=== PATIENT | male | born 1955 | race Caucasian/White ===

== ENCOUNTER → 2017-07-27 09:33 | Outpatient (CLI) | payer OTHER, SELFPAY ==
[2017-07-27 09:55] LABS: Add Manual Diff / Slide Review NO; Basophils Percent Auto 0.6 % (0-2); Eosinophils Percent Auto 4.5 % (2-4); Hematocrit 48.6 % (41-53); Hemoglobin 16.5 g/dL (13.5-17.5); Mean Corpuscular Hemoglobin 30.3 PG (26-34); Mean Corpuscular Volume 89.1 fL (80-100); Monocytes Percent Auto 8.6 % (3-14); Neutrophils Absolute Auto 2900 /uL (3000-5900); Neutrophils Percent Auto 66.3 % (50-75); Platelet Count 194 X10^3/uL (150-400); Red Blood Cell Count 5.45 X10^6/uL (4.5-5.9); White Blood Cell Count 4.4 X10^3/uL (4.5-11.0)
[2017-07-27 10:18] LABS: Alanine Aminotransferase 46 IU/L (21-72); Albumin 4.1 g/dL (3.5-5.0); Albumin Globulin Ratio 1.3 (1.0-2.8); Alkaline Phosphatase 75 U/L (38-126); Aspartate Aminotransferase 45 IU/L (17-59); BUN Creatinine Ratio 13.3 (6-22); Bilirubin Total 2.1 mg/dL (0.2-1.3); Blood Urea Nitrogen 12 mg/dL (9-20); Calcium 9.2 mg/dL (8.4-10.2); Carbon Dioxide 31 mmol/L (22-32); Chloride 100 mmol/L (98-107); Cholesterol 190 mg/dL (140-199); Estimated Glomerular Filt Rate > 60.0 mL/min (>60); Globulin 3.2 g/dL (1.7-4.1); Glucose 93 mg/dL (80-110); HDL Cholesterol 51 mg/dL (40-60); HEMOLYSIS < 15 (0-50); LDL Cholesterol Calculated 94 mg/dL (<100); Potassium 4.1 mmol/L (3.4-5.1); Sodium 140 mmol/L (137-145); Total Protein 7.3 g/dL (6.3-8.2); Triglycerides 227 mg/dL (35-150)
[2017-07-27 11:06] LABS: TSH w/ Reflex to FT4 2.98 uIU/mL (0.47-4.68)
[2017-07-27 13:38] LABS: Prostate Specific Antigen Scrn 0.893 ng/mL (0.1-4.0)
== END ==
PROVIDERS: Family Provider Family Medicine; PCP Family Medicine; Visit Provider Family Medicine
DX: I10 Essential (primary) hypertension (principal); E03.9 Hypothyroidism, unspecified; E78.5 Hyperlipidemia, unspecified; Z12.5 Encounter for screening for malignant neoplasm of prostate
CPT/HCPCS: 36415; 80053; 80061; 84153; 84443; 85025; G0103

== ENCOUNTER → 2019-01-02 09:50 | Outpatient (CLI) | payer MEDICARE, OTHER, SELFPAY ==
[2019-01-02 11:00] LABS: Add Manual Diff / Slide Review NO; Basophils Absolute Auto 0 /uL (0-100); Basophils Percent Auto 0.6 % (0-2); Eosinophils Absolute Auto 200 /uL (0-450); Hematocrit 47.7 % (41-53); Hemoglobin 16.2 g/dL (13.5-17.5); Lymphocytes Absolute Auto 1300 /uL (1100-4500); Lymphocytes Percent Auto 24.1 % (25-40); Mean Corpuscular Volume 88.1 fL (80-100); Monocytes Absolute Auto 600 /uL (0-900); Monocytes Percent Auto 10.1 % (3-14); Neutrophils Absolute Auto 3400 /uL (1500-7000); Neutrophils Percent Auto 62.2 % (50-75); Platelet Count 225 X10^3/uL (150-400); Red Blood Cell Count 5.42 X10^6/uL (4.5-5.9); White Blood Cell Count 5.4 X10^3/uL (4.5-11.0)
[2019-01-02 11:18] LABS: Alanine Aminotransferase 39 IU/L (<50); Albumin 4.4 g/dL (3.5-5.0); Albumin Globulin Ratio 1.5 (1.0-2.8); Alkaline Phosphatase 103 U/L (38-126); Aspartate Aminotransferase 40 IU/L (17-59); BUN Creatinine Ratio 18.8 (6-22); Bilirubin Total 1.4 mg/dL (0.2-1.3); Blood Urea Nitrogen 15 mg/dL (9-20); Calcium 9.8 mg/dL (8.4-10.2); Carbon Dioxide 30 mmol/L (22-32); Chloride 100 mmol/L (98-107); Cholesterol 211 mg/dL (140-199); Estimated Glomerular Filt Rate > 60.0 mL/min (>60); Globulin 2.9 g/dL (1.7-4.1); Glucose 96 mg/dL (80-110); HDL Cholesterol 60 mg/dL (40-60); HEMOLYSIS < 15 (0-50); LDL Cholesterol Calculated 106 mg/dL (<100); Potassium 4.6 mmol/L (3.4-5.1); Sodium 139 mmol/L (137-145); Total Protein 7.3 g/dL (6.3-8.2); Triglycerides 223 mg/dL (35-150)
[2019-01-02 11:43] LABS: Prostate Specific Antigen Scrn 1.89 ng/mL (0.1-4.0)
[2019-01-02 11:44] LABS: Thyroid Stimulating Hormone 1.71 uIU/mL (0.47-4.68)
== END ==
PROVIDERS: PCP Family Medicine; Visit Provider Family Medicine
DX: Z12.5 Encounter for screening for malignant neoplasm of prostate (principal); Z13.0 Encounter for screening for diseases of the blood and blood-forming organs and certain disorders involving the immune mechanism; Z13.1 Encounter for screening for diabetes mellitus; Z13.220 Encounter for screening for lipoid disorders; Z13.6 Encounter for screening for cardiovascular disorders; E03.9 Hypothyroidism, unspecified
CPT/HCPCS: 36415; 80053; 80061; 84443; 85025; G0103

== ENCOUNTER → 2020-01-08 09:34 | Outpatient (CLI) | payer MEDICARE, OTHER, SELFPAY ==
[2020-01-08 10:10] LABS: Add Manual Diff / Slide Review NO; Basophils Absolute Auto 0 /uL (0-100); Basophils Percent Auto 0.7 % (0-2); Eosinophils Absolute Auto 100 /uL (0-450); Eosinophils Percent Auto 2.7 % (2-4); Hematocrit 47.1 % (41-53); Hemoglobin 15.4 g/dL (13.5-17.5); Lymphocytes Absolute Auto 1300 /uL (1100-4500); Lymphocytes Percent Auto 27.3 % (25-40); Mean Corpuscular HGB Conc 32.8 % (30-36); Mean Corpuscular Hemoglobin 29.2 PG (26-34); Mean Corpuscular Volume 88.9 fL (80-100); Monocytes Absolute Auto 400 /uL (0-900); Monocytes Percent Auto 8.8 % (3-14); Neutrophils Absolute Auto 2900 /uL (1500-7000); Neutrophils Percent Auto 60.5 % (50-75); Platelet Count 197 X10^3/uL (150-400); Red Cell Distribution Width 13.2 % (11.6-14.8); White Blood Cell Count 4.8 X10^3/uL (4.5-11.0)
[2020-01-08 11:08] LABS: Alanine Aminotransferase 29 IU/L (<50); Albumin 4.5 g/dL (3.5-5.0); Albumin Globulin Ratio 1.5 (1.0-2.8); Alkaline Phosphatase 87 U/L (38-126); Aspartate Aminotransferase 32 IU/L (17-59); BUN Creatinine Ratio 17.4 (6-22); Bilirubin Total 1.5 mg/dL (0.2-1.3); Blood Urea Nitrogen 15 mg/dL (9-20); Calcium 9.6 mg/dL (8.4-10.2); Carbon Dioxide 29 mmol/L (22-32); Chloride 102 mmol/L (98-107); Cholesterol 189 mg/dL (140-199); Estimated Glomerular Filt Rate > 60.0 mL/min (>60); Glucose 91 mg/dL (80-110); HDL Cholesterol 52 mg/dL (40-60); HEMOLYSIS < 15 (0-50); LDL Cholesterol Calculated 87 mg/dL (<100); Potassium 4.4 mmol/L (3.4-5.1); Sodium 137 mmol/L (137-145); Total Protein 7.5 g/dL (6.3-8.2); Triglycerides 252 mg/dL (35-150)
[2020-01-08 13:25] LABS: Thyroid Stimulating Hormone 1.68 uIU/mL (0.47-4.68)
== END ==
PROVIDERS: PCP Family Medicine; Referring Provider Family Medicine; Visit Provider Family Medicine
DX: E03.9 Hypothyroidism, unspecified (principal); I10 Essential (primary) hypertension; Z12.5 Encounter for screening for malignant neoplasm of prostate
CPT/HCPCS: 36415; 80053; 80061; 84443; 85025; G0103

== ENCOUNTER → 2020-01-13 10:38 | Outpatient (CLI) | payer MEDICARE, OTHER, SELFPAY ==
[2020-02-13 13:46] LABS: SARS CoV19 IgG NEGATIVE
== END ==
PROVIDERS: PCP Family Medicine; Referring Provider Family Medicine; Visit Provider Family Medicine
DX: Z87.898 Personal history of other specified conditions (principal)
CPT/HCPCS: 86769

== ENCOUNTER 2020-05-29 06:19 | Inpatient (IN) | payer MEDICARE, OTHER, SELFPAY ==
[2020-05-29] VITALS (21 sets, daily range): BP systolic 97–213; BP diastolic 61–123; PULSE 68–139; RESP 11–20; TEMP 35.7–39.4; O2SAT 91–98; BMI 27.2
--- NOTE | 2020-05-29 | PATH_ITS ---
[facility] Accession Number: [id number] . 01 Material submitted: . appendix - APPENDIX . 02 Diagnosis: Appendix, Appendectomy: Acute suppurative appendicitis with perforation and serositis. Negative for dysplasia and malignancy. MRV 06/04/2020 1551 Local . 02 Electronically signed: . Halie Mednoza MD, Pathologist NPI- [id number] . 01 Gross description: . The specimen is received in formalin, labeled appendix and consists of a 5.5 cm in length by 1.3 cm in diameter vermiform appendix with attached mi-yellow lobulated mesoappendix measuring 3.0 x 1.5 x 1.5 cm. The serosa is mi-pink, focally disrupted with fibrinous adhesions and mi-white purulent exudate. Sectioning reveals a mi-pink mucosa and a lumen measuring 0.8 cm in diameter. [employer] sections are submitted to include the en face margin (blue), central cross-sections and serially sectioned tip in cassettes A1-A3. ([id number]) /MRV 06/02/2020 1116 Local . 02 Pathologist provided ICD-10: K35.20 . 02 CPT . 691288 Performed at: 01 [facility] [address] [facility], [place], [place] [id number] MD Richi Mahoney MD Phone: [phone] Performed at: 02 [facility] [place] [address] [place], [place] [id number] MD Halie Mendoza MD Phone: [phone]
--- NOTE | 2020-05-29 06:21 | ED.GENADULT ---
HPI - General Adult <Jose C Calvillo DO - Last Filed: 05/30/20 14:22> General Chief complaint: Abdominal Pain Stated complaint: Stomach pain, vomiting Time Seen by Provider: 05/29/20 06:20 Source: patient Mode of arrival: Ambulatory Limitations: no limitations History of Present Illness HPI narrative: Patient is a 65-year-old male. History of high blood pressure and hypothyroidism here for evaluation of right-sided abdominal pain. He states the symptoms started approximately 2 days ago however has been worsening over the past 12 hours. He stated that during this time he has felt like he is very bloated. He denies any urinary symptoms. No testicular pain. No diarrhea. Has had subjective fevers. Has forced himself to throw up because he thought that that would improve his symptoms but he states that it did not. Did take some Tylenol prior to arrival the was no prior interventions. Related Data Previous Rx's Medication Instructions Recorded levothyroxine 175 mcg tablet 175 mcg PO QDAY #90 tab 01/15/20 lisinopril 10 mg tablet See Rx Instructions .ROUTE 01/27/20 .COMPLEX #180 tab Allergies Allergy/AdvReac Type Severity Reaction Status Date / Time No Known Drug Allergies Allergy Verified 05/29/20 16:14 Review of Systems <Jose C Calvillo DO - Last Filed: 05/30/20 14:22> Constitutional Constitutional: Denies fatigue and Reports fever(s) (Subjective) Cardiovascular Cardiovascular: Denies chest pain and Denies dyspnea Respiratory Respiratory: Denies dyspnea Gastrointestinal Gastrointestinal: Reports abdominal pain, Denies change in bowel habits and Reports vomiting (Forced himself to vomit) Genitourinary Genitourinary: Denies dysuria and Denies testicular pain Genitourinary: Denies dysuria Musculoskeletal Musculoskeletal: Denies arthralgias and Denies myalgias Integumentary/Breasts Skin/Breast: Denies rash Neurologic Neurologic: Denies behavioral changes and Denies confusion Psychiatric Psychiatric: Denies behavioral changes and Denies confusion Endocrine Endocrine: Denies fatigue Hematologic/Lymphatic On Anticoagulants: No Allergic/Immunologic Allergic/Immunologic: Denies urticaria Patient History <Jose C Calvillo DO - Last Filed: 05/30/20 14:22> Medical History Colon polyps Surgical History Anesthesia Surgical procedure planned Family History Father Parkinson's disease Mother Stomach cancer Social History household members: spouse Smoking Status: Former smoker alcohol intake: current Smoking Status: Former smoker Exam <DO Merrill Ang Last Filed: 05/30/20 14:22> Initial Vital Signs Initial Vital Signs: Vital Signs Temperature 98.6 F 05/29/20 06:28 Pulse Rate 95 H 05/29/20 06:28 Respiratory Rate 17 05/29/20 06:28 Blood Pressure 213/123 H 05/29/20 06:28 Pulse Oximetry 97 05/29/20 06:28 Const General: cooperative and comfortable Limitations: mental status not altered HENMT Head: normal to inspection and normocephalic Resp Effort & Inspection: normal respiratory effort Auscultation: clear to auscultation bilaterally Cardio Rate: regular rate Rhythm: regular rhythm GI Inspection: non-distended Palpation: soft and tender (Right lower quadrant) Other: Patient has a reducible umbilical hernia Skin Lesions: no lesions Rashes: no rashes Neuro General: patient alert, patient awake and patient oriented x3 Cognition: normal cognition Speech: speech normal Extrem General: normal to inspection and capillary refill normal Psych Appearance: grossly normal and well kempt <Azucena Capps DO - Last Filed: 05/29/20 18:49> Initial Vital Signs Initial Vital Signs: Vital Signs Temperature 98.6 F 05/29/20 06:28 Pulse Rate 95 H 05/29/20 06:28 Respiratory Rate 17 05/29/20 06:28 Blood Pressure 213/123 H 05/29/20 06:28 Pulse Oximetry 97 05/29/20 06:28 Scores <DO Merrill Ang Last Filed: 05/30/20 14:22> GCS Philip coma scale eye opening: Spontaneous Philip coma scale verbal response: Orientated Philip coma scale motor response: Obey commands Rowley coma scale total score: 15 Course <DO Merrill Ang Last Filed: 05/30/20 14:22> Orders Ordered: Acetaminophen (Acetaminophen 650 Mg Supp) 650 mg AR Q6HR PRN PRN Reason: Pain, Mild (1-3) Docusate Sodium (Docusate 100 Mg Capsule) 100 mg PO BID PRN PRN Reason: Constipation Enoxaparin Sodium (Enoxaparin 40 Mg/0.4 Ml Syringe) 40 mg SUBCUT DAILY [facility] Last Admin: 05/30/20 08:34 Dose: 40 mg Documented by: [email or web address] Gabapentin (Gabapentin 300 Mg Capsule) 300 mg PO BID [facility] Last Admin: 05/30/20 08:32 Dose: 300 mg Documented by: [email or web address] Admin: 05/29/20 20:52 Dose: 300 mg Documented by: COOKIE Piperacillin/Tazobactam/Dextrose (Zosyn) 3.375 gm in 50 mls @ 100 mls/hr IV Q6H [facility] Last Infusion: 05/30/20 13:51 Dose: 100 mls/hr Documented by: [email or web address] Admin: 05/30/20 11:30 Dose: 100 mls/hr Documented by: [email or web address] Sodium Chloride (Normal Saline 0.9%) 250 mls @ 21 mls/hr IV Q24H PRN PRN Reason: Flush Last Admin: 05/30/20 11:30 Dose: 21 mls/hr Documented by: [email or web address].[email or web address] Ketorolac Tromethamine (Ketorolac 30 Mg/Ml Vial) 30 mg IV Q6HR PRN PRN Reason: Pain, Moderate (4-6) Stop: 06/03/20 20:32 Levothyroxine Sodium (Levothyroxine 150 Mcg Tablet) 150 mcg PO 0600 [facility] Last Admin: 05/30/20 05:58 Dose: 150 mcg Documented by: RUBIA Levothyroxine Sodium (Levothyroxine 25 Mcg Tablet) 25 mcg PO 0600 [facility] Last Admin: 05/30/20 05:58 Dose: 25 mcg Documented by: RUBIA Lisinopril (Lisinopril 10 Mg Tablet) 20 mg PO DAILY [facility] Last Admin: 05/30/20 08:33 Dose: 20 mg Documented by: [email or web address] Naloxone HCl (Naloxone 0.4 Mg/Ml Vial) 0.2 mg IV Q2MIN PRN PRN Reason: Opiate Reversal Ondansetron HCl (Ondansetron 4 Mg/2 Ml Inj) 4 mg IV Q4HR PRN PRN Reason: Nausea And Vomiting Oxycodone/Acetaminophen (Oxycodone/Acetaminophen 5/325 Tablet) 2 tab PO Q6HR PRN PRN Reason: Pain, Severe (7-10) Sennosides (Sennosides 8.6 Mg Tablet) 17.2 mg PO DAILY [facility] Last Admin: 05/30/20 08:32 Dose: 17.2 mg Documented by: SELINAIXON Sodium Chloride (Sodium Chloride 0.9% Flush) 10 ml IV BID [facility] Last Admin: 05/30/20 09:23 Dose: Not Given Documented by: OLIVIA Sodium Chloride (Sodium Chloride 0.9% Flush) 10 ml IV PRN PRN PRN Reason: Flush Last Admin: 05/30/20 11:31 Dose: 10 ml Documented by: ANDRÉS Discontinued Medications Bupivacaine HCl (Bupivacaine 0.5% (Pf) Vial) 30 ml INJ NOW ONE Stop: 05/29/20 18:26 Last Admin: 05/29/20 18:25 Dose: 6 ml Documented by: SALONI Fentanyl (Fentanyl 100 Mcg/2 Ml Inj) 0 mcg IV Q5M PRN PRN Reason: Pain, Moderate (4-6) Hydromorphone HCl (Hydromorphone 2 Mg Inj) 0 mg IV Q5M PRN PRN Reason: Pain, Severe (7-10) Sodium Chloride (Normal Saline 0.9%) 1,000 mls @ 1,000 mls/hr IV BOLUS ONE Stop: 05/29/20 07:25 Last Infusion: 05/29/20 08:31 Dose: 0 mls/hr Documented by: Admin: 05/29/20 06:44 Dose: 1,000 mls/hr Documented by: DEQUAN Piperacillin Sod/Tazobactam (Sod 4.5 gm/ Sodium Chloride) 100 mls @ 200 mls/hr IV NOW ONE Stop: 05/29/20 07:30 Last Admin: 05/29/20 07:43 Dose: Not Given Documented by: RAVI Piperacillin/Tazobactam/Dextrose (Zosyn) 4.5 gm in 100 mls @ 200 mls/hr IV NOW ONE Stop: 05/29/20 08:03 Last Infusion: 05/29/20 08:32 Dose: 0 mls/hr Documented by: Admin: 05/29/20 07:42 Dose: 200 mls/hr Documented by: RAVI Lactated Ringer's (Lactated Ringers) 1,000 mls @ 500 mls/hr IV BOLUS ONE Stop: 05/29/20 12:20 Last Admin: 05/29/20 18:43 Dose: 500 mls/hr Documented by: Infusion: 05/29/20 12:39 Dose: 500 mls/hr Documented by: MARY JANE Admin: 05/29/20 10:39 Dose: 500 mls/hr Documented by: DARLENE Lactated Ringer's (Lactated Ringers) 1,000 mls @ 150 mls/hr IV CONT JUAN Last Infusion: 05/29/20 20:16 Dose: 0 mls/hr Documented by: Admin: 05/29/20 15:56 Dose: 150 mls/hr Documented by: Infusion: 05/29/20 15:56 Dose: 150 mls/hr Documented by: Admin: 05/29/20 10:53 Dose: 150 mls/hr Documented by: DARLENE Piperacillin/Tazobactam/Dextrose (Zosyn) 3.375 gm in 50 mls @ 100 mls/hr IV INTRA-OP ONE Stop: 05/29/20 11:05 Last Infusion: 05/29/20 18:00 Dose: 0 mls/hr Documented by: Admin: 05/29/20 17:48 Dose: 100 mls/hr Documented by: Infusion: 05/29/20 11:21 Dose: 100 mls/hr Documented by: MARY JANE Admin: 05/29/20 10:51 Dose: 100 mls/hr Documented by: DARLENE Lactated Ringer's (Lactated Ringers) 1,000 mls @ 150 mls/hr IV CONT JUAN Last Infusion: 05/30/20 10:34 Dose: 150 mls/hr Documented by: Admin: 05/30/20 03:42 Dose: 150 mls/hr Documented by: Infusion: 05/30/20 03:33 Dose: 150 mls/hr Documented by: Admin: 05/29/20 20:52 Dose: 150 mls/hr Documented by: COOKIE Ketorolac Tromethamine (Ketorolac 60 Mg/2 Ml Vial) 15 mg IV NOW ONE Stop: 05/29/20 07:35 Last Admin: 05/29/20 07:42 Dose: 15 mg Documented by: RAVI Metoprolol Tartrate (Metoprolol Tartrate 5 Mg/5 Ml Inj) 5 mg IV Q5M JUAN Stop: 05/29/20 07:56 Last Admin: 05/29/20 10:26 Dose: Not Given Documented by: Admin: 05/29/20 10:26 Dose: Not Given Documented by: Admin: 05/29/20 07:49 Dose: 5 mg Documented by: RAVI Metoprolol Tartrate (Metoprolol Tartrate 5 Mg/5 Ml Inj) 5 mg IV Q6H PRN PRN Reason: Hypertension Morphine Sulfate (Morphine 4 Mg/Ml Inj) 4 mg IV Q2H PRN PRN Reason: Pain, Severe (7-10) Last Admin: 05/29/20 10:33 Dose: 4 mg Documented by: DARLENE Ondansetron HCl (Ondansetron 4 Mg/2 Ml Inj) 4 mg IV NOW ONE Stop: 05/29/20 06:27 Last Admin: 05/29/20 06:44 Dose: 4 mg Documented by: DEQUAN Ondansetron HCl (Ondansetron 4 Mg/2 Ml Inj) 4 mg IV NOW PRN PRN Reason: Nausea And Vomiting Oxycodone/Acetaminophen (Oxycodone/Acetaminophen 5/325 Tablet) 1 tab PO PACUNOW PRN PRN Reason: Mild or Moderate Pain Vital Signs Vital signs: Vital Signs - 8 hr 05/29/20 06:28 05/29/20 06:42 05/29/20 07:00 Temperature 98.6 F Pulse Rate 95 H 76 75 Respiratory Rate 17 Blood Pressure 213/123 H 198/122 H Pulse Oximetry 97 98 98 05/29/20 07:30 Temperature Pulse Rate 86 Respiratory Rate Blood Pressure 198/122 H Pulse Oximetry 97 <Azucena Capps, - Last Filed: 05/29/20 18:49> Orders Ordered: Acetaminophen (Acetaminophen 650 Mg Supp) 650 mg AR Q6HR PRN PRN Reason: Pain, Mild (1-3) Docusate Sodium (Docusate 100 Mg Capsule) 100 mg PO BID PRN PRN Reason: Constipation Enoxaparin Sodium (Enoxaparin 40 Mg/0.4 Ml Syringe) 40 mg SUBCUT DAILY [facility] Last Admin: 05/30/20 08:34 Dose: 40 mg Documented by: [email or web address] Gabapentin (Gabapentin 300 Mg Capsule) 300 mg PO BID [facility] Last Admin: 05/30/20 08:32 Dose: 300 mg Documented by: [email or web address] Admin: 05/29/20 20:52 Dose: 300 mg Documented by: COOKIE Piperacillin/Tazobactam/Dextrose (Zosyn) 3.375 gm in 50 mls @ 100 mls/hr IV Q6H [facility] Last Infusion: 05/30/20 13:51 Dose: 100 mls/hr Documented by: [email or web address] Admin: 05/30/20 11:30 Dose: 100 mls/hr Documented by: [email or web address] Sodium Chloride (Normal Saline 0.9%) 250 mls @ 21 mls/hr IV Q24H PRN PRN Reason: Flush Last Admin: 05/30/20 11:30 Dose: 21 mls/hr Documented by: [email or web address] Ketorolac Tromethamine (Ketorolac 30 Mg/Ml Vial) 30 mg IV Q6HR PRN PRN Reason: Pain, Moderate (4-6) Stop: 06/03/20 20:32 Levothyroxine Sodium (Levothyroxine 150 Mcg Tablet) 150 mcg PO 0600 [facility] Last Admin: 05/30/20 05:58 Dose: 150 mcg Documented by: RUBIA Levothyroxine Sodium (Levothyroxine 25 Mcg Tablet) 25 mcg PO 0600 [facility] Last Admin: 05/30/20 05:58 Dose: 25 mcg Documented by: RUBIA Lisinopril (Lisinopril 10 Mg Tablet) 20 mg PO DAILY [facility] Last Admin: 05/30/20 08:33 Dose: 20 mg Documented by: [email or web address] Naloxone HCl (Naloxone 0.4 Mg/Ml Vial) 0.2 mg IV Q2MIN PRN PRN Reason: Opiate Reversal Ondansetron HCl (Ondansetron 4 Mg/2 Ml Inj) 4 mg IV Q4HR PRN PRN Reason: Nausea And Vomiting Oxycodone/Acetaminophen (Oxycodone/Acetaminophen 5/325 Tablet) 2 tab PO Q6HR PRN PRN Reason: Pain, Severe (7-10) Sennosides (Sennosides 8.6 Mg Tablet) 17.2 mg PO DAILY [facility] Last Admin: 05/30/20 08:32 Dose: 17.2 mg Documented by: ANDRÉS Sodium Chloride (Sodium Chloride 0.9% Flush) 10 ml IV BID [facility] Last Admin: 05/30/20 09:23 Dose: Not Given Documented by: OLIVIA Sodium Chloride (Sodium Chloride 0.9% Flush) 10 ml IV PRN PRN PRN Reason: Flush Last Admin: 05/30/20 11:31 Dose: 10 ml Documented by: ANDRÉS Discontinued Medications Bupivacaine HCl (Bupivacaine 0.5% (Pf) Vial) 30 ml INJ NOW ONE Stop: 05/29/20 18:26 Last Admin: 05/29/20 18:25 Dose: 6 ml Documented by: SALONI Fentanyl (Fentanyl 100 Mcg/2 Ml Inj) 0 mcg IV Q5M PRN PRN Reason: Pain, Moderate (4-6) Hydromorphone HCl (Hydromorphone 2 Mg Inj) 0 mg IV Q5M PRN PRN Reason: Pain, Severe (7-10) Sodium Chloride (Normal Saline 0.9%) 1,000 mls @ 1,000 mls/hr IV BOLUS ONE Stop: 05/29/20 07:25 Last Infusion: 05/29/20 08:31 Dose: 0 mls/hr Documented by: Admin: 05/29/20 06:44 Dose: 1,000 mls/hr Documented by: DEQUAN Piperacillin Sod/Tazobactam (Sod 4.5 gm/ Sodium Chloride) 100 mls @ 200 mls/hr IV NOW ONE Stop: 05/29/20 07:30 Last Admin: 05/29/20 07:43 Dose: Not Given Documented by: RAVI Piperacillin/Tazobactam/Dextrose (Zosyn) 4.5 gm in 100 mls @ 200 mls/hr IV NOW ONE Stop: 05/29/20 08:03 Last Infusion: 05/29/20 08:32 Dose: 0 mls/hr Documented by: Admin: 05/29/20 07:42 Dose: 200 mls/hr Documented by: RAVI Lactated Ringer's (Lactated Ringers) 1,000 mls @ 500 mls/hr IV BOLUS ONE Stop: 05/29/20 12:20 Last Admin: 05/29/20 18:43 Dose: 500 mls/hr Documented by: Infusion: 05/29/20 12:39 Dose: 500 mls/hr Documented by: MARY JANE Admin: 05/29/20 10:39 Dose: 500 mls/hr Documented by: DARLENE Lactated Ringer's (Lactated Ringers) 1,000 mls @ 150 mls/hr IV CONT JUAN Last Infusion: 05/29/20 20:16 Dose: 0 mls/hr Documented by: Admin: 05/29/20 15:56 Dose: 150 mls/hr Documented by: Infusion: 05/29/20 15:56 Dose: 150 mls/hr Documented by: Admin: 05/29/20 10:53 Dose: 150 mls/hr Documented by: DARLENE Piperacillin/Tazobactam/Dextrose (Zosyn) 3.375 gm in 50 mls @ 100 mls/hr IV INTRA-OP ONE Stop: 05/29/20 11:05 Last Infusion: 05/29/20 18:00 Dose: 0 mls/hr Documented by: Admin: 05/29/20 17:48 Dose: 100 mls/hr Documented by: Infusion: 05/29/20 11:21 Dose: 100 mls/hr Documented by: MARY JANE Admin: 05/29/20 10:51 Dose: 100 mls/hr Documented by: DARLENE Lactated Ringer's (Lactated Ringers) 1,000 mls @ 150 mls/hr IV CONT JUAN Last Infusion: 05/30/20 10:34 Dose: 150 mls/hr Documented by: Admin: 05/30/20 03:42 Dose: 150 mls/hr Documented by: Infusion: 05/30/20 03:33 Dose: 150 mls/hr Documented by: Admin: 05/29/20 20:52 Dose: 150 mls/hr Documented by: COOKIE Ketorolac Tromethamine (Ketorolac 60 Mg/2 Ml Vial) 15 mg IV NOW ONE Stop: 05/29/20 07:35 Last Admin: 05/29/20 07:42 Dose: 15 mg Documented by: RAVI Metoprolol Tartrate (Metoprolol Tartrate 5 Mg/5 Ml Inj) 5 mg IV Q5M JUAN Stop: 05/29/20 07:56 Last Admin: 05/29/20 10:26 Dose: Not Given Documented by: Admin: 05/29/20 10:26 Dose: Not Given Documented by: Admin: 05/29/20 07:49 Dose: 5 mg Documented by: RAVI Metoprolol Tartrate (Metoprolol Tartrate 5 Mg/5 Ml Inj) 5 mg IV Q6H PRN PRN Reason: Hypertension Morphine Sulfate (Morphine 4 Mg/Ml Inj) 4 mg IV Q2H PRN PRN Reason: Pain, Severe (7-10) Last Admin: 05/29/20 10:33 Dose: 4 mg Documented by: DARLENE Ondansetron HCl (Ondansetron 4 Mg/2 Ml Inj) 4 mg IV NOW ONE Stop: 05/29/20 06:27 Last Admin: 05/29/20 06:44 Dose: 4 mg Documented by: DEQUAN Ondansetron HCl (Ondansetron 4 Mg/2 Ml Inj) 4 mg IV NOW PRN PRN Reason: Nausea And Vomiting Oxycodone/Acetaminophen (Oxycodone/Acetaminophen 5/325 Tablet) 1 tab PO PACUNOW PRN PRN Reason: Mild or Moderate Pain Vital Signs Vital signs: Vital Signs - 8 hr 05/29/20 06:28 05/29/20 06:42 05/29/20 07:00 Temperature 98.6 F Pulse Rate 95 H 76 75 Respiratory Rate 17 Blood Pressure 213/123 H 198/122 H Pulse Oximetry 97 98 98 05/29/20 07:30 Temperature Pulse Rate 86 Respiratory Rate Blood Pressure 198/122 H Pulse Oximetry 97 Medical Decision Making <Jose C Calvillo DO - Last Filed: 05/30/20 14:22> Medical Records Medical records reviewed: Yes I reviewed the patient's medical records. Lab Data Result diagrams: 05/30/20 06:18 05/29/20 06:35 Labs: Lab Results 05/29/20 05/29/20 05/29/20 Range/Units 06:35 06:35 06:35 WBC 12.0 H (4.5-11.0) X10^3/uL RBC 5.40 (4.5-5.9) X10^6/uL Hgb 15.9 (13.5-17.5) g/dL Hct 47.1 (41-53) % MCV 87.3 (80-100) fL MCH 29.4 (26-34) PG MCHC 33.7 (30-36) % RDW 12.7 (11.6-14.8) % Plt Count 180 (150-400) X10^3/uL Neut % (Auto) 88.2 H (50-75) % Lymph % (Auto) 6.6 L (25-40) % Laporte % (Auto) 4.6 (3-14) % Eos % (Auto) 0.1 L (2-4) % Baso % (Auto) 0.5 (0-2) % Neut # (Auto) 56760 H (1240-8474) /uL Lymph # (Auto) 800 L (8133-0515) /uL [place] # (Auto) 500 (0-900) /uL Eos # (Auto) 0 (0-450) /uL Baso # (Auto) 100 (0-100) /uL Sodium 132 L (137-145) mmol/L Potassium 4.0 (3.4-5.1) mmol/L Chloride 98 (98-107) mmol/L Carbon Dioxide 24 (22-32) mmol/L BUN 18 (9-20) mg/dL Creatinine 0.82 (0.66-1.25) mg/dL Estimated GFR > 60.0 (>60) mL/min BUN/Creatinine Ratio 22.0 (6-22) Glucose 134 H (80-110) mg/dL Calcium 10.0 (8.4-10.2) mg/dL Total Bilirubin 1.7 H (0.2-1.3) mg/dL AST 40 (17-59) IU/L ALT 31 (<50) IU/L Alkaline Phosphatase 100 (38-126) U/L Total Protein 7.9 (6.3-8.2) g/dL Albumin 4.7 (3.5-5.0) g/dL Globulin 3.2 (1.7-4.1) g/dL Albumin/Globulin Ratio 1.5 (1.0-2.8) Lipase 62 (23-300) U/L TSH 3.71 (0.47-4.68) uIU/mL MDM Narrative Medical decision making narrative: Two days of right-sided abdominal pain worsening over the past 12 hours. Does have localized right-sided abdominal pain. Has a reducible umbilical hernia. Labs are pending. CT scans pending. Care turned over to Dr. Capps unchanged shift to follow up on labs and CT scan. <Azucena Capps DO - Last Filed: 05/29/20 18:49> Lab Data Lab results reviewed: Yes I reviewed the patient's lab results. Labs: Lab Results 05/29/20 05/29/20 05/29/20 Range/Units 06:35 06:35 06:35 WBC 12.0 H (4.5-11.0) X10^3/uL RBC 5.40 (4.5-5.9) X10^6/uL Hgb 15.9 (13.5-17.5) g/dL Hct 47.1 (41-53) % MCV 87.3 (80-100) fL MCH 29.4 (26-34) PG MCHC 33.7 (30-36) % RDW 12.7 (11.6-14.8) % Plt Count 180 (150-400) X10^3/uL Neut % (Auto) 88.2 H (50-75) % Lymph % (Auto) 6.6 L (25-40) % Laporte % (Auto) 4.6 (3-14) % Eos % (Auto) 0.1 L (2-4) % Baso % (Auto) 0.5 (0-2) % Neut # (Auto) 59175 H (0539-1149) /uL Lymph # (Auto) 800 L (3359-8409) /uL [place] # (Auto) 500 (0-900) /uL Eos # (Auto) 0 (0-450) /uL Baso # (Auto) 100 (0-100) /uL Sodium 132 L (137-145) mmol/L Potassium 4.0 (3.4-5.1) mmol/L Chloride 98 (98-107) mmol/L Carbon Dioxide 24 (22-32) mmol/L BUN 18 (9-20) mg/dL Creatinine 0.82 (0.66-1.25) mg/dL Estimated GFR > 60.0 (>60) mL/min BUN/Creatinine Ratio 22.0 (6-22) Glucose 134 H (80-110) mg/dL Calcium 10.0 (8.4-10.2) mg/dL Total Bilirubin 1.7 H (0.2-1.3) mg/dL AST 40 (17-59) IU/L ALT 31 (<50) IU/L Alkaline Phosphatase 100 (38-126) U/L Total Protein 7.9 (6.3-8.2) g/dL Albumin 4.7 (3.5-5.0) g/dL Globulin 3.2 (1.7-4.1) g/dL Albumin/Globulin Ratio 1.5 (1.0-2.8) Lipase 62 (23-300) U/L TSH 3.71 (0.47-4.68) uIU/mL Imaging Data CT scan - abdomen/pelvis: Radiologist's Impression: Acute retrocecal appendicitis without evidence of perforation or abscess. Bilateral perinephric stranding likely represents residual prior inflammatory obstructive process. Nodularity and thickening of the adrenal glands bilaterally without evidence of discrete mass. MDM Narrative Medical decision making narrative: 65 year old male with complaint of right side abdominal pain that signed out by Dr. Calvillo to myself. Patient is hypertensive. He does have a history of hypertension and was not able to take his regular blood pressure medications secondary to nausea and vomiting this morning. His labs show leukocytosis of 12.5. Bilirubin is elevated. Patient's labs otherwise do not show major abnormalities. Patient appears to have an appendicitis on his CT imaging. Patient is NPO from liquids for the last 3 hours and his last meal was 7:00 p.m. last night. Patient states he still having some right-sided abdominal discomfort. He denies any pain elsewhere. Hold patient's primary care is Dr. Shay. Reviewed patient's history, HPI as well as his labs and imaging findings today. COVID swab was performed in the department and I spoke with Dr. Landry who accepts with plan for OR today. Plan for IV antibiotics and medication for BP as patient quite hypertensive in the department. Discharge Plan Departure Patient Disposition: Admitted as Observation Clinical Impression: Acute appendicitis, Hypertension Admit Date/Time: 05/29/20 07:38 Admit Provider: Pedro Landry
--- NOTE | 2020-05-29 06:27 | DI.CT.S_ITS ---
PROCEDURE: CT ABDOMEN PELVIS W CON INDICATIONS: Right-sided abdominal pain TECHNIQUE: After the administration of intravenous contrast, 5 mm thick sections acquired from the diaphragm to the symphysis. 5 mm coronal and sagittal reformats were acquired. For radiation dose reduction, the following was used: automated exposure control, adjustment of mA and/or kV according to patient size. COMPARISON: None. FINDINGS Lower thorax: The lung bases are clear. Heart size normal. No hiatal hernia. Liver: Normal in size and attenuation. No contour deformity present. Biliary system: No calcified cholelithiasis or pericholecystic inflammation. No intra or extrahepatic bile duct dilatation. Pancreas: Unremarkable without mass or inflammation evident. Spleen: Normal in size and density. Adrenals: Normal morphology and density. Reproductive system: Unremarkable as visualized. Urinary system: Normal renal size and attenuation. No renal calculi, hydronephrosis, or solid mass present. Urinary bladder unremarkable. Gastrointestinal system: The bowel appears unremarkable with no evidence of bowel obstruction or inflammation. The stomach appears unremarkable. Appendix: The appendix is dilated up to 1.3 cm, in the 1 cm appendicolith is noted as well. There is very appendiceal inflammation, but no evidence of abscess. Peritoneal spaces: No intra- or retroperitoneal adenopathy. No free air. No free fluid. Vasculature: Atherosclerotic calcification in the abdominal aorta without evidence of aneurysm. Musculoskeletal: Normal bone mineralization present. Moderate multilevel degenerative disc disease. Small ventral hernia periumbilical contains fat without bowel involvement. And small bilateral inguinal hernias also containing fat without bowel involvement. IMPRESSION: 1. Acute retrocecal appendicitis without evidence of abscess or free fluid. 3. Small periumbilical and bilateral inguinal hernias contain fat without bowel involvement. Note: Final report is concordant with preliminary interpretation by [facility] Dictated by: Austin Langley M.D. on 05/29/2020 at 8:04 Approved by: Austin Langley M.D. on 05/29/2020 at 8:43
[2020-05-29] MEDS: ONDANSETRON 4 MG/2 ML INJ IV (06:44)
[2020-05-29] MEDS: SODIUM CHLORIDE 0.9% 1,000 ML 1000 ML IV (06:44)
[2020-05-29 06:45] LABS: Add Manual Diff / Slide Review NO; Basophils Absolute Auto 100 /uL (0-100); Basophils Percent Auto 0.5 % (0-2); Eosinophils Absolute Auto 0 /uL (0-450); Eosinophils Percent Auto 0.1 % (2-4); Hematocrit 47.1 % (41-53); Hemoglobin 15.9 g/dL (13.5-17.5); Lymphocytes Absolute Auto 800 /uL (1100-4500); Lymphocytes Percent Auto 6.6 % (25-40); Mean Corpuscular HGB Conc 33.7 % (30-36); Mean Corpuscular Hemoglobin 29.4 PG (26-34); Mean Corpuscular Volume 87.3 fL (80-100); Monocytes Absolute Auto 500 /uL (0-900); Monocytes Percent Auto 4.6 % (3-14); Neutrophils Absolute Auto 10500 /uL (1500-7000); Neutrophils Percent Auto 88.2 % (50-75); Platelet Count 180 X10^3/uL (150-400); Red Cell Distribution Width 12.7 % (11.6-14.8)
[2020-05-29 06:57] LABS: Alanine Aminotransferase 31 IU/L (<50); Albumin 4.7 g/dL (3.5-5.0); Albumin Globulin Ratio 1.5 (1.0-2.8); Alkaline Phosphatase 100 U/L (38-126); Aspartate Aminotransferase 40 IU/L (17-59); Bilirubin Total 1.7 mg/dL (0.2-1.3); Blood Urea Nitrogen 18 mg/dL (9-20); Carbon Dioxide 24 mmol/L (22-32); Chloride 98 mmol/L (98-107); Estimated Glomerular Filt Rate > 60.0 mL/min (>60); Globulin 3.2 g/dL (1.7-4.1); Glucose 134 mg/dL (80-110); HEMOLYSIS < 15 (0-50); Lipase 62 U/L (23-300); Sodium 132 mmol/L (137-145); Total Protein 7.9 g/dL (6.3-8.2)
[2020-05-29] MEDS: KETOROLAC 60 MG/2 ML VIAL 15 MG IV (07:42)
[2020-05-29] MEDS: PIPERACILLIN-TAZO 4.5 GM/100 ML FROZ.PIGGY IV (07:42)
[2020-05-29] MEDS: METOPROLOL TARTRATE 5 MG/5 ML INJ IV (07:49)
[2020-05-29 07:53] LABS: Thyroid Stimulating Hormone 3.71 uIU/mL (0.47-4.68)
--- NOTE | 2020-05-29 08:58 | PC.NURSE ---
Day shift: Pt on AC unit from ED at approx 0900. He is A&Ox4. Denies any nausea. Pain in RLQ reported. Calm and cooperative. SL at this time. BP elevated and MD aware. Pt st. Covid results pending at this time. On precautions per protocol. Stated that he has not taken his BP meds today. No Hx falls. Independent in room at this time. Dr Landry planning on procedure today. RA 98%. Reports pain 05/16. Awaiting any new orders. Pt remains NPO at this time as well. Printed out info on lap appy and appendicitis for Pt to read.
[2020-05-29 10:03] LABS: COVID19 - ADMIT (NP swab/PCR) Negative (Negative)
--- NOTE | 2020-05-29 10:11 | PC.NURSE ---
Day shift: Reported by phone to Dr Landry (at approx 1005) that Pt reporting ABD pain 07/16. MD will talk w/ Pt and get consent for surgery prior to ordering any narcotic pain medication at tis time. Awaiting order for pain med at this time. Pt is Covid neg. Pt has voided 350mls clear yellow.
--- NOTE | 2020-05-29 10:31 | PM.HP.1 ---
History of Present Illness History of Present Illness Date Patient Seen: 05/29/20 Time Patient Seen: 10:31 Chief complaint: Stomach pain, vomiting Narrative: The patient is a gentleman who developed abdominal pain 2 days ago. It was lower abdominal pain. He thought it was food poisoning which he has had in the past. He went hiking and took walks and did usual things but that evening his pain intensified and he came into the emergency room. The pain is located discretely in the right lower quadrant. He had something similar couple weeks ago he said but that went away and this has not. No nausea or vomiting. Patient History Medical History Colon polyps Surgical History Anesthesia Surgical procedure planned Family & Social History Family History Father Parkinson's disease Mother Stomach cancer Social History: household members spouse Prior Living Arrangements House Safety & Behavioral: Feels Safe in Current Yes Environment Been Physically Hurt or No Threatened By a Person Suicidal Ideation Description None Suicide Plan Description No Plan Tobacco & Substance use: Smoking Status Former smoker alcohol intake frequency a few times a week Substance Use Type marijuana Meds Home Medications and Allergies Home Medications Medication Instructions Recorded Confirmed Type levothyroxine 175 mcg tablet 175 mcg PO QDAY #90 tab 01/15/20 05/29/20 Rx lisinopril 10 mg tablet See Rx Instructions .ROUTE 01/27/20 05/29/20 Rx .COMPLEX #180 tab Allergies Allergy/AdvReac Type Severity Reaction Status Date / Time No Known Drug Allergies Allergy Unverified 01/30/20 10:07 Review of Systems Review of Systems ROS: Yes All systems reviewed with the patient and are negative except as otherwise documented Exam Vital Signs (past 8 hours): - 05/29/20 06:28 05/29/20 06:42 05/29/20 07:00 Temperature 98.6 F Pulse Rate 95 H 76 75 Respiratory Rate 17 Blood Pressure 213/123 H 198/122 H Pulse Oximetry 97 98 98 05/29/20 07:30 05/29/20 07:56 05/29/20 07:57 Temperature Pulse Rate 86 82 80 Respiratory Rate Blood Pressure 198/122 H 198/120 H 199/102 H Pulse Oximetry 97 98 97 05/29/20 08:00 05/29/20 08:30 05/29/20 09:10 Temperature 98.9 F Pulse Rate 80 85 99 H Respiratory Rate 20 Blood Pressure 179/99 H 183/109 H 133/92 H Pulse Oximetry 96 97 95 Oxygen Delivery Method Room Air Narrative Exam Narrative: Cooperative in no apparent distress. Eyes are nonicteric. Neck is supple. Lungs are clear to auscultation no rales or rhonchi. Heart little rapid regular rate and rhythm without murmur gallop at this time. Abdomen is flat but soft. There is very localized tenderness right lower quadrant. Almost to the right flank. No guarding. He does have an umbilical hernia that is reducible. Alert and oriented x3. Speech rate and content are appropriate. Affect is appropriate. Objective Labs Result Diagrams: 05/29/20 06:35 05/29/20 06:35 Labs: Laboratory Results - last 24 hr 05/29/20 05/29/20 05/29/20 06:35 06:35 06:35 WBC 12.0 H RBC 5.40 Hgb 15.9 Hct 47.1 MCV 87.3 MCH 29.4 MCHC 33.7 RDW 12.7 Plt Count 180 Neut % (Auto) 88.2 H Lymph % (Auto) 6.6 L [place] % (Auto) 4.6 Eos % (Auto) 0.1 L Baso % (Auto) 0.5 Neut # (Auto) 19589 H Lymph # (Auto) 800 L [place] # (Auto) 500 Eos # (Auto) 0 Baso # (Auto) 100 Sodium 132 L Potassium 4.0 Chloride 98 Carbon Dioxide 24 BUN 18 Creatinine 0.82 Estimated GFR > 60.0 BUN/Creatinine Ratio 22.0 Glucose 134 H Calcium 10.0 Total Bilirubin 1.7 H AST 40 ALT 31 Alkaline Phosphatase 100 Total Protein 7.9 Albumin 4.7 Globulin 3.2 Albumin/Globulin Ratio 1.5 Lipase 62 TSH 3.71 SARS-CoV-2 (PCR) 05/29/20 08:35 WBC RBC Hgb Hct MCV MCH MCHC RDW Plt Count Neut % (Auto) Lymph % (Auto) [place] % (Auto) Eos % (Auto) Baso % (Auto) Neut # (Auto) Lymph # (Auto) [place] # (Auto) Eos # (Auto) Baso # (Auto) Sodium Potassium Chloride Carbon Dioxide BUN Creatinine Estimated GFR BUN/Creatinine Ratio Glucose Calcium Total Bilirubin AST ALT Alkaline Phosphatase Total Protein Albumin Globulin Albumin/Globulin Ratio Lipase TSH SARS-CoV-2 (PCR) Negative Assessment & Plan Assessment & Plan narrative: CT scan reviewed. Classic appearance for acute appendicitis. His history and physical alert consistent with same. As are his labs. Will proceed to a laparoscopic appendectomy possible open procedure. I have discussed this with the patient. Risks of bleeding infection which is at increased risk due to the were fact for working on the colon, and intestinal leak were all discussed with him. He appears to understand wishes to proceed.
[2020-05-29] MEDS: MORPHINE 4 MG/ML INJ IV (10:33)
[2020-05-29] MEDS: LACTATED RINGERS 1,000 ML 500 ML IV ×2 (10:39→18:43)
[2020-05-29] MEDS: PIPERACILLIN-TAZO 3.375 GM/50 ML FROZ.PIGGY IV ×2 (10:51→17:48)
[2020-05-29] MEDS: LACTATED RINGERS 1,000 ML 150 ML IV ×3 (10:53→20:52)
--- NOTE | 2020-05-29 11:25 | PM.PREOP ---
Pre-operative Note COVID-19 COVID-19 status: Negative Result date/Date tested (Pos, Neg/Pending): 05/29/20 Interval Note History & Physical reviewed/Exam performed by Physician: Yes Changes to H&P: No
--- NOTE | 2020-05-29 18:13 | SUR.OPER ---
Supine on padded OR bed, head on pillow, right arm secured on padded arm boards at <90 degrees abduction, left arm is tucked, legs uncrossed, safety belt at thigh, tape over blanket over lower legs.
[2020-05-29] MEDS: BUPIVACAINE 0.5% (PF) VIAL 30 ML INJ (18:25)
--- NOTE | 2020-05-29 20:08 | PM.OP.1 ---
Operative Date/Time/Diagnoses Date of procedure: 05/29/20 Time of procedure: 20:09 Pre-op diagnosis: Acute appendicitis Post-op diagnosis: same (Necrotic appendix) Procedure & Clinicians Procedure: Laparoscopic appendectomy. Repair of umbilical hernia. Same procedure as scheduled: Yes Indications: Abnormal CT scan tenderness right lower quadrant and an elevated white blood cell count Surgeon: Pedro Landry Click Yes if Unassisted: Yes Anesthesia Type: General Operative Notes Findings: Necrotic appendix just beyond the base. Small amount of spillage of material. Closure Type: primary Specimen(s): other (Appendix) Prosthetic devices, grafts, tissues, transplants, or devices: None Applied: drain(s) (7 mm John-Rogers placed in the pelvis and up along the right gutter) Estimated Blood Loss (mL): 5 Blood products transfused: none Procedure in detail: Patient is placed supine on the operating room table and underwent general endotracheal anesthesia. He was prepped and draped in the usual fashion. A Muñiz had been placed prior to prepping. Patient had a known umbilical hernia and I talked to him about repairing it preoperatively. Local anesthetic was infiltrated above the 0 8 umbilicus and a curvilinear incision made here. It was carried down to the level of the fascia. The sac was entered and preperitoneal fat was reduced and the fascial edge cleared of tissue. Two stay sutures of 0 Vicryl were placed in the fascia. I entered the peritoneum and a 12 mm port was inserted. Two additional ports were placed 1 between the umbilicus and the pubis and the other in the left lower quadrant. These were 5 mm ports. Attachments of the terminal ileum cecum to the right abdominal wall were divided bluntly and with cautery. This allowed me to rotate the cecum medially and I could identify the base of the appendix. The on this however it was very difficult to identify what was appendix. It was encased in densely adherent fat. I tried to bluntly and sharply dissect some of this fat off but it was very adherent and it was impossible to identify a good planes of tissue. I therefore bluntly dissected near the base of the appendix and was able to get through to the other side. I placed an 0 Vicryl tie using a knot pushing device tied the base of the appendix. I then divided the base beyond this and now that I could see the lumen it was easy to follow the appendix toward the tip. Using the LigaSure device I was able to very carefully divide the mesoappendix right at the edge of the appendix and ultimately freed it placed in a bag and removed it without difficulty through the umbilical port. I examined the stump which I had tied carefully and the tie was quite secure and even with manipulation of the cecum there was no evidence of any disruption or spillage. The right gutter and pelvis were irrigated freely and suctioned free of fluid. Because of the perforation the difficulty I had getting every be last bit of fluid out of the pelvis I decided to place a John-Rogers drain. It aches was placed coming out through the inferior most port. It was placed into the pelvis and then run up along the right gutter. There had been minimal blood loss during the procedure. The port at the umbilicus and the left lower quadrant were removed. The drain coming out of the lowest port site was secured with a 2 0 PDS suture. I placed an 0 0 Prolene in the fascial defect at the umbilicus and tied this. I then tied the 2 stay sutures on each side. This appeared to close the defect nicely. The left lower quadrant and umbilical wounds were irrigated and repaired the fluid removed. I tacked the umbilicus down to the fascia with interrupted 3-0 Vicryl sutures. The subQ was closed with interrupted 3 0 Vicryl sutures at the umbilicus. The skin was closed in all areas with interrupted 4-0 Vicryl subcuticular stitches and Steri-Strips. Dressings were applied. The patient was awakened extubated and taken recovery room good condition. Complications: none Post-operative Condition: stable Disposition: PACU
--- NOTE | 2020-05-29 20:26 | SUR.PHASEI ---
Transported patient to floor in stable condition. Report given to Maynor. VANESSA. AAO x3. Denies pain or nausea.
[2020-05-29] MEDS: GABAPENTIN 300 MG CAPSULE PO (20:52)
[2020-05-30] VITALS (8 sets, daily range): BP systolic 107–151; BP diastolic 69–92; PULSE 65–82; RESP 16–18; TEMP 36.1–37; O2SAT 94–98
[2020-05-30] MEDS: LACTATED RINGERS 1,000 ML 150 ML IV (03:42)
[2020-05-30] MEDS: LEVOTHYROXINE 25 MCG TABLET PO (05:58)
[2020-05-30] MEDS: LEVOTHYROXINE 150 MCG TABLET PO (05:58)
[2020-05-30 06:42] LABS: Add Manual Diff / Slide Review NO; Basophils Absolute Auto 0 /uL (0-100); Basophils Percent Auto 0.2 % (0-2); Eosinophils Absolute Auto 0 /uL (0-450); Hematocrit 37.3 % (41-53); Hemoglobin 12.7 g/dL (13.5-17.5); Lymphocytes Absolute Auto 600 /uL (1100-4500); Lymphocytes Percent Auto 5.6 % (25-40); Mean Corpuscular Volume 88.1 fL (80-100); Monocytes Absolute Auto 500 /uL (0-900); Monocytes Percent Auto 4.7 % (3-14); Neutrophils Absolute Auto 9200 /uL (1500-7000); Neutrophils Percent Auto 89.5 % (50-75); Platelet Count 110 X10^3/uL (150-400); Red Blood Cell Count 4.24 X10^6/uL (4.5-5.9); Red Cell Distribution Width 12.6 % (11.6-14.8); White Blood Cell Count 10.2 X10^3/uL (4.5-11.0)
[2020-05-30] MEDS: GABAPENTIN 300 MG CAPSULE PO ×2 (08:32→21:52)
[2020-05-30] MEDS: SENNOSIDES 8.6 MG TABLET 17.2 MG PO (08:32)
[2020-05-30] MEDS: lisinopriL 10 MG TABLET 20 MG PO (08:33)
[2020-05-30] MEDS: ENOXAPARIN 40 MG/0.4 ML SYRINGE SUBCUT (08:34)
--- NOTE | 2020-05-30 11:00 | PM.PNPO.1 ---
Subjective Subjective Date Patient Seen: 05/30/20 Time Patient Seen: 11:00 Interval history: No acute overnight events. Tolerating clear liquids no nausea vomiting. No wound drainage or fever overnight. Exam Vital Signs (past 8 hours): - 05/30/20 04:00 05/30/20 08:24 05/30/20 08:33 Temperature 98.6 F 98.3 F Pulse Rate 78 80 80 Respiratory Rate 18 18 Blood Pressure 133/83 151/86 H 151/86 H Pulse Oximetry 98 96 Oxygen Delivery Method Room Air Oxygen Flow Rate 0 Narrative Exam Narrative: General adult male alert oriented no acute distress Abdomen appropriately tender to palpation. Laparoscopic port incisions are clean dry intact. Objective Labs Result Diagrams: 05/30/20 06:18 05/29/20 06:35 Labs: Laboratory Results - last 24 hr 05/30/20 06:18 WBC 10.2 RBC 4.24 L Hgb 12.7 L Hct 37.3 L MCV 88.1 MCH 30.0 MCHC 34.0 RDW 12.6 Plt Count 110 L Neut % (Auto) 89.5 H Lymph % (Auto) 5.6 L [place] % (Auto) 4.7 Eos % (Auto) 0.0 L Baso % (Auto) 0.2 Neut # (Auto) 9200 H Lymph # (Auto) 600 L [place] # (Auto) 500 Eos # (Auto) 0 Baso # (Auto) 0 PFSH Medical History Colon polyps Surgical History Anesthesia Surgical procedure planned Family History Father Parkinson's disease Mother Stomach cancer Social History household members: spouse Smoking Status: Former smoker alcohol intake: current Assessment & Plan Post-op Postoperative Procedures: Procedures Operation Date: 05/29/20 16:00 Actual Procedures Side Surgeon p Laparoscopic Appendectomy AND UMBILICAL HERNIA REPAIR WITH NO MESH Pedro Landry MD Postoperative plan narrative: 65-year-old man postoperative day 1 status post laparoscopic appendectomy for acute perforated appendicitis. -advance diet to regular -continue Zosyn -anticipate discharge home tomorrow on p.o. antibiotics. -DC IV fluids -SCD and Lovenox for VT prophylaxis
--- NOTE | 2020-05-30 11:18 | CM.DANOTE ---
Patient is a 65 year old male who was admitted on 05/29/20 for Stomach Pain/Vomiting. Pt has MCR and PRE DIM for insurance and his PCP is Dr. Ajith Shay. EMR was reviewed. Per Surgeon, pt with acute appendicitis and recommending Lap Appe and pt signed consents and had surgery last night. Per Surgeon, pt tolerated procedure well and was ambulating independently but will begin advancing his diet today with likely d/c home tomorrow if remains stable. Pt lives at home with spouse in [place] and quite active and independent at baseline and denies any hx of HH or SNF. Pt continues to ambulate the hallways and is hopeful that he can tolerate advancing diet as his preference is home tomorrow if stable via spouse POV. Plan: SW to follow for likely d/c home with spouse when medically stable and any further identified discharge planning needs. ISELA Alvarez Discharge Planning/Care Management CM Discharge Assessment Start: 05/30/20 11:11 Freq: Status: Active Protocol: Document 05/30/20 11:12 BF (Rec: 05/30/20 11:15 BF [id number]) Discharge Planning Assessment Assigned Position Classification Specialist ISELA Card DPOA/Assigned Designee Name spouse Advance Directives? No Advance Directives on File No History Provided By Patient,Medical Record Has Patient been admitted in last 30 No days? Prior Living Arrangements House Household Members spouse Type of transporation used prior to Drives own vehicle admit Independent with ADL's Yes Is patient alert and oriented? Yes Caregiver for Another No Barriers to Discharge No Discharge Plan Home Transportation Arrangement Spouse to transport home at d/ c Referrals Initiated None needed Review Status In Process Please Provide Date Initial DC 05/30/20 Assessment Was Performed Next Review Type Continued Stay Review
[2020-05-30] MEDS: PIPERACILLIN-TAZO 3.375 GM/50 ML FROZ.PIGGY IV ×3 (11:30→23:17)
[2020-05-30] MEDS: SODIUM CHLORIDE 0.9% 250 ML 21 ML IV (11:30)
[2020-05-30] MEDS: SODIUM CHLORIDE 0.9% FLUSH 10 ML IV ×2 (11:31→16:51)
--- NOTE | 2020-05-30 14:58 | PC.NURSE ---
Patient has pain 2/10 declines pain intervention, bowel tones are hypoactive in all 4 quadrants, patient is passing gas and had small BM today. Patient denies nausea. VSS. Lung sounds are clear. Patient has been advanced to general diet today and is tolerating well. Patient has been up and ambulating in the hallways with nursing program director. RUY drain is patent and draining.
[2020-05-31 04:00] VITALS: BP 134/82; PULSE 70; RESP 18; TEMP 36.6; O2SAT 97
[2020-05-31] MEDS: PIPERACILLIN-TAZO 3.375 GM/50 ML FROZ.PIGGY IV ×2 (04:47→10:14)
[2020-05-31 05:07] LABS: Add Manual Diff / Slide Review NO; Basophils Absolute Auto 0 /uL (0-100); Basophils Percent Auto 0.5 % (0-2); Eosinophils Absolute Auto 100 /uL (0-450); Eosinophils Percent Auto 1.1 % (2-4); Hematocrit 37.7 % (41-53); Hemoglobin 12.6 g/dL (13.5-17.5); Lymphocytes Absolute Auto 1300 /uL (1100-4500); Lymphocytes Percent Auto 16.6 % (25-40); Mean Corpuscular HGB Conc 33.4 % (30-36); Mean Corpuscular Hemoglobin 29.6 PG (26-34); Mean Corpuscular Volume 88.7 fL (80-100); Monocytes Absolute Auto 700 /uL (0-900); Monocytes Percent Auto 9.1 % (3-14); Neutrophils Absolute Auto 5700 /uL (1500-7000); Neutrophils Percent Auto 72.7 % (50-75); Platelet Count 125 X10^3/uL (150-400); Red Blood Cell Count 4.25 X10^6/uL (4.5-5.9); Red Cell Distribution Width 13.1 % (11.6-14.8); White Blood Cell Count 7.9 X10^3/uL (4.5-11.0)
[2020-05-31] MEDS: LEVOTHYROXINE 25 MCG TABLET PO (05:32)
[2020-05-31] MEDS: LEVOTHYROXINE 150 MCG TABLET PO (05:32)
[2020-05-31 08:26] VITALS: BP 134/82; PULSE 70
[2020-05-31] MEDS: ENOXAPARIN 40 MG/0.4 ML SYRINGE SUBCUT (08:26)
[2020-05-31] MEDS: lisinopriL 10 MG TABLET 20 MG PO (08:26)
[2020-05-31] MEDS: GABAPENTIN 300 MG CAPSULE PO (08:27)
[2020-05-31] MEDS: SODIUM CHLORIDE 0.9% FLUSH 10 ML IV (08:29)
[2020-05-31 08:36] VITALS: BP 151/99; PULSE 78; RESP 15; TEMP 36.6; O2SAT 96
--- NOTE | 2020-05-31 10:26 | P.DS_ITS ---
History of Present Illness History of Present Illness Date Patient Seen: 05/31/20 Time Patient Seen: 10:26 Chief complaint: Stomach pain, vomiting Narrative: 65-year-old male presented with abdominal pain was found to have acute appendicitis. Discharge Providers Provider Date of admission: 05/29/20 07:38 Discharge Date: 05/31/20 Primary care physician: Ajith Shay MD Consults: 05/29/20 20:38 Consult to Discharge Planning Routine Comment: Discharge provider: Saurabh Zimmerman MD Summary Hospital Course Discharge Diagnosis: Perforated appendicitis Hospital Course: Who patient underwent a laparoscopic appendectomy which d emonstrated acute perforated appendicitis. Postoperatively he was maintained on IV Zosyn with a intra-abdominal drain. On the date of discharge 05/31 he is afebrile, WBC 8. His pain is well controlled on oral medication he is ambulatory tolerating regular diet without nausea or vomiting. His drain has been removed. He will discharge home on 1 week of Augmentin. Exam Vital Signs (past 8 hours): - 05/31/20 04:00 05/31/20 08:26 05/31/20 08:36 Temperature 97.8 F 97.8 F Pulse Rate 70 70 78 Respiratory Rate 18 15 Blood Pressure 134/82 134/82 151/99 H Pulse Oximetry 97 96 Oxygen Delivery Method Room Air Oxygen Flow Rate 0 Narrative Exam Narrative: General adult male alert oriented no acute distress Chest nonlabored respirations. Abdomen soft appropriately tender to palpation. Drain serosanguineous output removed from the suprapubic incision. Objective Labs Result Diagrams: 05/31/20 04:50 05/29/20 06:35 Labs: Laboratory Results - last 24 hr 05/31/20 04:50 WBC 7.9 RBC 4.25 L Hgb 12.6 L Hct 37.7 L MCV 88.7 MCH 29.6 MCHC 33.4 RDW 13.1 Plt Count 125 L Neut % (Auto) 72.7 Lymph % (Auto) 16.6 L [place] % (Auto) 9.1 Eos % (Auto) 1.1 L Baso % (Auto) 0.5 Neut # (Auto) 5700 Lymph # (Auto) 1300 [place] # (Auto) 700 Eos # (Auto) 100 Baso # (Auto) 0 PFSH Medical History Colon polyps Surgical History Anesthesia Surgical procedure planned Family History Father Parkinson's disease Mother Stomach cancer Social History household members: spouse Smoking Status: Former smoker alcohol intake: current Discharge Plan Discharge Plan Patient Disposition: Home Discharge orders & Medications Prescriptions: New docusate sodium [Colace] 100 mg capsule 100 mg PO BID Qty: 30 RF: 0 amoxicillin-pot clavulanate [Augmentin] 875-125 mg tablet 1 tab PO BID Qty: 14 RF: 0 ibuprofen 200 mg tablet 400 mg PO Q6H Qty: 60 RF: 0 oxycodone 5 mg tablet 5 mg PO Q8H PRN (Reason: pain) Qty: 30 RF: 0 acetaminophen [Tylenol] 325 mg capsule 650 mg PO QID PRN (Reason: pain) Qty: 60 RF: 0 Continued levothyroxine [Synthroid] 175 mcg tablet 175 mcg PO QDAY Qty: 90 RF: 1 lisinopril 10 mg tablet See Rx Instructions .ROUTE .COMPLEX Qty: 180 RF: 0 Follow up/Referrals: Ajith Shay MD [Primary Care Provider] - Pedro Landry MD [Physician] - 2 Weeks Diet/Activity/Treatments Diet: Regular Activity: No lifting >20 lbs x 4 weeks. Walking only for exercise for 4 weeks. No driving while taking narcotics. Skin/Wound/Dressing Care Skin care: No lifting >20 lbs x 4 weeks. Walking only for exercise for [address] Report to your healthcare provider any signs of infection, such as:: chills, fever, increased pain, unusual drainage and unusual redness Visit Report/Discharge Packet Instructions: Appendicitis, DI for an Appendectomy, DI for Laparoscopy, Appendectomy -- Laparoscopic Surgery Discharge Data Primary Care Provider: Ajith Shay
--- NOTE | 2020-05-31 12:34 | PC.NURSE ---
Pt. A&Ox3, ambulating with steady gait. LS CTA. Denies n/v + BS x4, + flatus, x1 small BM. Abdomen tender, soft with incision C/D/I. Drain with minimal sersanguineous drainage. Tolerating meals well. MD Zimmermna at bedside dc'd drain and cleared patient for discharge. arrived, explained wound care, medications, activity and follow up as well as education of appendectomy. Patient and verbalize understanding. Prescriptions escribed to [facility] in [place]. Escorted patient and to private vehicle with all belongings.
== END 2020-05-31 11:15 | disposition home or self-care (01) | DRG 340 ==
LOC: ED 07:37 → AC 07:39
PROVIDERS: Emergency Medicine; Admitting Provider Specialist; Emergency Provider Emergency Medicine; PCP Family Medicine; Referring Provider Emergency Medicine; Visit Provider Specialist
PROC: 0DTJ4ZZ Resection of Appendix, Percutaneous Endoscopic Approach (ICD-10-PCS; CPT 44970; principal; 2020-05-29 16:00)
DX: K35.32 Acute appendicitis with perforation, localized peritonitis, and gangrene, without abscess (principal); K42.9 Umbilical hernia without obstruction or gangrene; Z20.822 Contact with and (suspected) exposure to COVID-19; I10 Essential (primary) hypertension; E03.9 Hypothyroidism, unspecified
CPT/HCPCS: 36415; 44970; 49585; 74177; 80053; 83690; 84443; 85025; 87635; 96361; 96365; 96375; 99222; 99284; C9803; J0330; J1100; J1650; J1885; J2250; J2270; J2405; J2543; J2704; J3010

== ENCOUNTER → 2020-12-14 11:06 | Outpatient (CLI) | payer MEDICARE, OTHER, SELFPAY ==
[2020-05-29 09:27] VITALS: BMI 27.2
[2020-12-14 15:10] LABS: COVID19 -Nasal RAPID Negative (Negative)
== END ==
PROVIDERS: PCP Family Medicine; Referring Provider Physician Assistant; Visit Provider Physician Assistant
DX: Z20.822 Contact with and (suspected) exposure to COVID-19 (principal); Z01.812 Encounter for preprocedural laboratory examination
CPT/HCPCS: 87635; C9803

== ENCOUNTER 2020-12-15 08:42 | Day surgery (SDC) | payer MEDICARE, OTHER, SELFPAY ==
[2020-05-29 09:27] VITALS: BMI 27.2
[2020-12-15 09:45] VITALS: BP 138/83; PULSE 66; RESP 16; TEMP 36.6; O2SAT 98; BMI 28.3
[2020-12-15] MEDS: CATARACT EYE COMPOUND (10 DROPS/SYRINGE) 3 DROPS EYE-OP (10:03)
--- NOTE | 2020-12-15 10:34 | PM.PREOP ---
Pre-operative Note Interval Note History & Physical reviewed/Exam performed by Physician: Yes Changes to H&P: No
--- NOTE | 2020-12-15 10:35 | PM.OP.1 ---
Operative Date/Time/Diagnoses Pre-op diagnosis: Nuclear cataract right eye Procedure & Clinicians Procedure: Cataract Surgery Same procedure as scheduled: Yes Surgeon: Mario Perkins Anesthesia Type: MAC +/- and Sedation Operative Notes Procedure in detail: Patient brought to the operating suite. Tetracaine drops placed in the right eye. Patient was prepped and draped in sterile manner. Wire lid speculum was placed in the eye. Betadine drops were placed on the eye. This was irrigated. Lidocaine jelly was placed on the eye. A paracentesis port was created with a side-port blade. 0.1 mL 1% preservative free lidocaine was injected into the anterior chamber. The anterior chamber was deepened with viscoelastic. 2.6 mm keratome was used to create a temporal clear corneal incision. Cystotome and Utrata forceps were used to create continuous tear capsulorrhexis. Balanced salt solution was used to hydro dissect the nucleus. The phacoemulsification handpiece was inserted and the nucleus was removed using the stop and chop technique. The irrigation aspiration handpiece was inserted and the remaining cortex was removed. Anterior chamber was deepened with viscoelastic. An Abad DIB00 intraocular lens with a power of 24.0 was injected into the capsular bag. Irrigation aspiration handpiece was inserted and the remaining viscoelastic was removed. Incision was hydrated with balanced salt solution and found to be leak free with pressure with Weck-Katelin sponges. 0.1 mL Vigamox injected anterior chamber. 0.3 mL Kenalog 10 mg was injected subconjunctivally. Lid speculum was removed. The patient left the operating room in excellent condition. Complications: none Post-operative Condition: stable Disposition: same day surgery
[2020-12-15] MEDS: MOXIFLOXACIN INJ 4 MG/0.8 ML VIAL 0.5 MG EYE-OP (10:53)
[2020-12-15] MEDS: TRIAMCINOLONE 50 MG/5 ML VIAL INJ (10:53)
[2020-12-15] MEDS: PHENYLEPHRINE/LIDOCAINE VIAL (OR) 0.2 ML EYE-OP (10:53)
[2020-12-15] MEDS: HYALURONATE SODIUM 30 MG-10 MG/ML SYRINGES 1 BOX INTRAOCULA (10:53)
[2020-12-15] MEDS: TETRACAINE 0.5% OPHTH DROPS 4 ML 2 DROPS EYE-OP (10:54)
[2020-12-15] MEDS: BALANCED SALT IRRIG SOLN NO.2 500 ML, EPINEPHrine 1 MG IRR (10:54)
[2020-12-15] MEDS: LIDOCAINE 2% (GLYDO) 6 ML GEL TOP (10:54)
[2020-12-15 11:05] VITALS: BP 115/76; PULSE 70; RESP 16; TEMP 36.6; O2SAT 98
[2020-12-15 11:15] VITALS: BP 110/67; PULSE 62; RESP 16; O2SAT 98
== END 2020-12-15 11:28 | disposition home or self-care (01) ==
PROVIDERS: PCP Family Medicine; Referring Provider Ophthalmology; Visit Provider Ophthalmology
PROC: (CPT 66984; principal; 2020-12-15 10:45)
DX: H25.11 Age-related nuclear cataract, right eye (principal); E03.9 Hypothyroidism, unspecified
CPT/HCPCS: 66984; J0171; J2250; J3010; J3301

== ENCOUNTER → 2021-01-04 11:23 | Outpatient (CLI) | payer MEDICARE, OTHER, SELFPAY ==
[2020-05-29 09:27] VITALS: BMI 27.2
[2021-01-04 14:05] LABS: COVID19 -Nasal RAPID Negative (Negative)
== END ==
PROVIDERS: PCP Family Medicine; Visit Provider Physician Assistant
DX: Z20.822 Contact with and (suspected) exposure to COVID-19 (principal)
CPT/HCPCS: 87635; C9803

== ENCOUNTER 2021-01-05 11:56 | Day surgery (SDC) | payer MEDICARE, OTHER, SELFPAY ==
[2020-05-29 09:27] VITALS: BMI 27.2
[2021-01-05 12:40] VITALS: BP 136/91; PULSE 71; RESP 18; TEMP 35.9; O2SAT 99
[2021-01-05] MEDS: PROPARACAINE 0.5% OPHTH SOL 2 DROPS EYE-OP (12:40)
[2021-01-05] MEDS: CATARACT EYE COMPOUND (10 DROPS/SYRINGE) 3 DROPS EYE-OP (12:41)
[2021-01-05 12:44] VITALS: BMI 27.3
--- NOTE | 2021-01-05 12:50 | PM.PREOP ---
Pre-operative Note Interval Note History & Physical reviewed/Exam performed by Physician: Yes Changes to H&P: No
--- NOTE | 2021-01-05 12:51 | PM.OP.1 ---
Operative Date/Time/Diagnoses Pre-op diagnosis: Nuclear Cataract Left eye Post-op diagnosis: same Procedure & Clinicians Same procedure as scheduled: Yes Surgeon: Mario Perkins Anesthesia Type: MAC +/- and Sedation Operative Notes Procedure in detail: Patient brought to the operating suite. Tetracaine drops placed in the left eye. Patient was prepped and draped in sterile manner. Wire lid speculum was placed in the eye. Betadine drops were placed on the eye. This was irrigated. Lidocaine jelly was placed on the eye. A paracentesis port was created with a side-port blade. 0.1 mL 1% preservative free lidocaine was injected into the anterior chamber. The anterior chamber was deepened with viscoelastic. 2.6 mm keratome was used to create a temporal clear corneal incision. Cystotome and Utrata forceps were used to create continuous tear capsulorrhexis. Balanced salt solution was used to hydro dissect the nucleus. The phacoemulsification handpiece was inserted and the nucleus was removed using the stop and chop technique. The irrigation aspiration handpiece was inserted and the remaining cortex was removed. Anterior chamber was deepened with viscoelastic. An Abad DIB00 intraocular lens with a power of 21.0 was injected into the capsular bag. Irrigation aspiration handpiece was inserted and the remaining viscoelastic was removed. Incision was hydrated with balanced salt solution and found to be leak free with pressure with Weck-Katelin sponges. 0.1 mL Vigamox injected anterior chamber. 0.3 mL Kenalog 10 mg was injected subconjunctivally. Lid speculum was removed. The patient left the operating room in excellent condition. Complications: none Post-operative Condition: stable Disposition: same day surgery
[2021-01-05] MEDS: HYALURONATE SODIUM 30 MG-10 MG/ML SYRINGES 1 BOX INTRAOCULA (13:20)
[2021-01-05] MEDS: MOXIFLOXACIN INJ 4 MG/0.8 ML VIAL 0.5 MG EYE-OP (13:20)
[2021-01-05] MEDS: PHENYLEPHRINE/LIDOCAINE VIAL (OR) 0.2 ML EYE-OP (13:21)
[2021-01-05] MEDS: LIDOCAINE 2% (GLYDO) 6 ML GEL TOP (13:22)
[2021-01-05] MEDS: TRIAMCINOLONE 50 MG/5 ML VIAL INJ (13:22)
[2021-01-05] MEDS: TETRACAINE 0.5% OPHTH DROPS 4 ML 2 DROPS EYE-OP (13:22)
[2021-01-05] MEDS: BALANCED SALT IRRIG SOLN NO.2 500 ML, EPINEPHrine 1 MG IRR (13:22)
[2021-01-05 13:39] VITALS: BP 120/86; PULSE 69; RESP 16; TEMP 36.8; O2SAT 98
== END 2021-01-05 13:46 | disposition home or self-care (01) ==
PROVIDERS: PCP Family Medicine; Referring Provider Ophthalmology; Visit Provider Ophthalmology
PROC: (CPT 66984; principal; 2021-01-05 13:45)
DX: H25.12 Age-related nuclear cataract, left eye (principal)
CPT/HCPCS: 66984; J0171; J2250; J3010; J3301

== ENCOUNTER → 2021-01-13 10:05 | Outpatient (CLI) | payer MEDICARE, OTHER, SELFPAY ==
[2020-05-29 09:27] VITALS: BMI 27.2
[2021-01-13 12:07] LABS: Add Manual Diff / Slide Review NO; Basophils Absolute Auto 0 /uL (0-100); Basophils Percent Auto 0.8 % (0-2); Eosinophils Absolute Auto 200 /uL (0-450); Eosinophils Percent Auto 4.8 % (2-4); Hematocrit 46.1 % (41-53); Hemoglobin 15.2 g/dL (13.5-17.5); Lymphocytes Absolute Auto 1000 /uL (1100-4500); Lymphocytes Percent Auto 23.2 % (25-40); Mean Corpuscular Hemoglobin 28.6 PG (26-34); Mean Corpuscular Volume 86.5 fL (80-100); Monocytes Absolute Auto 400 /uL (0-900); Monocytes Percent Auto 10.7 % (3-14); Neutrophils Absolute Auto 2500 /uL (1500-7000); Neutrophils Percent Auto 60.5 % (50-75); Platelet Count 209 X10^3/uL (150-400); Red Blood Cell Count 5.33 X10^6/uL (4.5-5.9); Red Cell Distribution Width 13.2 % (11.6-14.8); White Blood Cell Count 4.2 X10^3/uL (4.5-11.0)
[2021-01-13 12:32] LABS: Alanine Aminotransferase 24 IU/L (<50); Albumin 4.4 g/dL (3.5-5.0); Albumin Globulin Ratio 1.4 (1.0-2.8); Alkaline Phosphatase 89 U/L (38-126); Aspartate Aminotransferase 36 IU/L (17-59); BUN Creatinine Ratio 16.7 (6-22); Blood Urea Nitrogen 16 mg/dL (9-20); Calcium 9.4 mg/dL (8.4-10.2); Carbon Dioxide 29 mmol/L (22-32); Chloride 100 mmol/L (98-107); Cholesterol 201 mg/dL (140-199); Estimated Glomerular Filt Rate > 60.0 mL/min (>60); Globulin 3.1 g/dL (1.7-4.1); Glucose 91 mg/dL (80-110); HDL Cholesterol 50 mg/dL (40-60); HEMOLYSIS < 15 (0-50); LDL Cholesterol Calculated 111 mg/dL (<100); Potassium 4.1 mmol/L (3.4-5.1); Sodium 139 mmol/L (137-145); Total Protein 7.5 g/dL (6.3-8.2); Triglycerides 201 mg/dL (35-150)
[2021-01-13 19:58] LABS: Microalbumin Urine Random 2.6 mg/dL (0-1.6)
[2021-01-13 20:53] LABS: Creatinine Urine Random 420.2 mg/dL; Microalbumi Creatinin Ratio Ur 6.1 ug/mg CR (<30)
== END ==
PROVIDERS: PCP Family Medicine; Referring Provider Family Medicine; Visit Provider Family Medicine
DX: D64.9 Anemia, unspecified (principal); E03.9 Hypothyroidism, unspecified; I10 Essential (primary) hypertension
CPT/HCPCS: 36415; 80053; 80061; 82043; 82570; 84443; 85025

== ENCOUNTER → 2022-04-26 09:37 | Outpatient (CLI) | payer MEDICARE, OTHER, SELFPAY ==
[2020-05-29 09:27] VITALS: BMI 27.2
[2022-04-26 11:51] LABS: Add Manual Diff / Slide Review NO; Basophils Absolute Auto 0 /uL (0-100); Basophils Percent Auto 0.7 % (0-2); Eosinophils Absolute Auto 200 /uL (0-450); Eosinophils Percent Auto 3.4 % (2-4); Hematocrit 47.1 % (41-53); Hemoglobin 15.6 g/dL (13.5-17.5); Lymphocytes Absolute Auto 1300 /uL (1100-4500); Lymphocytes Percent Auto 26.5 % (25-40); Mean Corpuscular HGB Conc 33.2 % (30-36); Mean Corpuscular Hemoglobin 29.3 PG (26-34); Mean Corpuscular Volume 88.2 fL (80-100); Monocytes Absolute Auto 500 /uL (0-900); Monocytes Percent Auto 9.5 % (3-14); Neutrophils Absolute Auto 2900 /uL (1500-7000); Neutrophils Percent Auto 59.9 % (50-75); Platelet Count 239 X10^3/uL (150-400); Red Blood Cell Count 5.34 X10^6/uL (4.5-5.9); Red Cell Distribution Width 15.3 % (11.6-14.8); White Blood Cell Count 4.8 X10^3/uL (4.5-11.0)
[2022-04-26 12:13] LABS: Alanine Aminotransferase 28 IU/L (<50); Albumin 4.3 g/dL (3.5-5.0); Albumin Globulin Ratio 1.3 (1.0-2.8); Alkaline Phosphatase 90 U/L (38-126); Aspartate Aminotransferase 31 IU/L (17-59); BUN Creatinine Ratio 20.5 (6-22); Blood Urea Nitrogen 17 mg/dL (9-20); Calcium 9.1 mg/dL (8.4-10.2); Carbon Dioxide 29 mmol/L (22-32); Chloride 99 mmol/L (98-107); Cholesterol 204 mg/dL (140-199); Estimated Glomerular Filt Rate > 60 mL/min (>60); Globulin 3.2 g/dL (1.7-4.1); Glucose 91 mg/dL (80-110); HDL Cholesterol 62 mg/dL (40-60); HEMOLYSIS < 15 (0-50); LDL Cholesterol Calculated 92 mg/dL (<100); Potassium 4.6 mmol/L (3.4-5.1); Sodium 136 mmol/L (137-145); Total Protein 7.5 g/dL (6.3-8.2); Triglycerides 250 mg/dL (35-150)
[2022-04-26 12:39] LABS: Prostate Specific Antigen 2.58 ng/mL (0.10-4.00)
[2022-04-26 12:43] LABS: TSH w/ Reflex to FT4 2.74 uIU/mL (0.47-4.68)
== END ==
PROVIDERS: PCP Family Medicine; Referring Provider Family Medicine; Visit Provider Family Medicine
DX: E03.9 Hypothyroidism, unspecified (principal); I10 Essential (primary) hypertension; I44.7 Left bundle-branch block, unspecified
CPT/HCPCS: 36415; 80053; 80061; 84153; 84443; 85025

== ENCOUNTER → 2022-05-12 10:04 | Outpatient (CLI) | payer MEDICARE, OTHER, SELFPAY ==
[2020-05-29 09:27] VITALS: BMI 27.2
--- NOTE | 2022-05-12 10:09 | DI.RAD.S_ITS ---
PROCEDURE: XR ANKLE RT MIN 3V INDICATIONS: right ankle pain TECHNIQUE: 3 views of the ankle were acquired. COMPARISON: None. FINDINGS: Bones: No definite acute fractures or dislocations. Ankle mortise is normally aligned. No suspicious bony lesions. A plantar calcaneal spur is present. Soft tissues: No tibiotalar joint effusion. IMPRESSION: No acute osseous abnormality. If symptoms persist, follow-up radiographs and/or CT or MRI may be helpful for further evaluation. Dictated by: Mannie Milan M.D. on 05/12/2022 at 11:59 Approved by: Mannie Milan M.D. on 05/12/2022 at 12:01
== END ==
PROVIDERS: PCP Family Medicine; Referring Provider Family Medicine; Visit Provider Family Medicine
DX: S93.409A Sprain of unspecified ligament of unspecified ankle, initial encounter (principal); M25.571 Pain in right ankle and joints of right foot
CPT/HCPCS: 73610

== ENCOUNTER → 2022-05-12 15:14 | Outpatient (CLI) | payer MEDICARE, OTHER, SELFPAY ==
[2020-05-29 09:27] VITALS: BMI 27.2
--- NOTE | 2022-05-12 15:15 | DI.MRI.S_ITS ---
PROCEDURE: MR ANKLE RT WO CON INDICATIONS: right ankle swelling and concern for achilles tear TECHNIQUE: Noncontrast sagittal T1 spin echo and T2 fast spin echo with fat saturation, axial proton density fast spin echo and T2 fast spin echo with fat saturation, coronal T1 spin echo and T2 fast spin echo with fat saturation through the ankle/hindfoot. COMPARISON: [facility], CR, XR ANKLE RT MIN 3V, 05/12/2022, 10:09. FINDINGS: Image quality: Excellent. Bones and joints: No bone marrow contusions or fractures. No hindfoot coalitions. No osteochondral injuries of the talar dome. High-grade cartilage irregularity is seen at the posterior mortise joint with subchondral cystic changes in the posterior tibial plafond. There is focal cartilage loss and subchondral cystic changes at the medial talar dome. Medial structures: The deep and superficial layers of the deltoid ligament appear intact. The spring ligament components are intact. The posterior tibialis, flexor digitorum longus, and flexor hallucis longus tendons are intact. The posterior tibial neurovascular bundle appears normal within the tarsal tunnel, without extrinsic mass effect. Lateral structures: The anterior talofibular, calcaneofibular, and posterior talofibular ligaments appear intact. The anterior and posterior tibiofibular ligaments appear intact. The peroneus longus and brevis tendons demonstrate normal location and morphology. The sinus tarsi demonstrates normal fatty signal, without edema, fibrosis, or cyst formation. Anterior structures: The tibialis anterior, extensor hallucis longus, and extensor digitorum longus tendons appear intact. The dorsal talonavicular ligament appears intact. Posterior and plantar structures: There is full-thickness tearing of the Achilles tendon approximately 7 cm from the calcaneal insertion with retraction of the proximal tendon stump by approximately 1.8 cm laterally and up to 4.6 cm medially there is intervening fluid/hemorrhage and surrounding soft tissue edema. Mild thickening of the proximal plantar fascia without surrounding edema is consistent with chronic fasciitis. Focal nodular thickening of the plantar fascia at the level of the medial midfoot measuring approximately 9 x 9 x 6 mm suspicious for a focal fibroma. No abductor digiti quinti muscle atrophy to suggest Bui neuropathy. IMPRESSION: 1. Complete tearing of the Achilles tendon approximately 7 cm from the calcaneal insertion with retraction of the proximal tendon stump resulting in tendon separation by up to 1.8 cm laterally 4.6 cm medially with intervening fluid and hemorrhage. 2. Mild chronic proximal plantar fasciitis. Focal nodular thickening is seen along the medial plantar fascia at the level of the midfoot that is suspicious for a small focal fibroma. 3. Multifocal cartilage loss in the mortise joint with areas of subchondral edema and subchondral cystic changes. Approved by: Mannie Dash M.D. on 05/12/2022 at 16:57
== END ==
PROVIDERS: PCP Family Medicine; Referring Provider Family Medicine; Visit Provider Family Medicine
DX: S86.011A Strain of right Achilles tendon, initial encounter (principal); M25.571 Pain in right ankle and joints of right foot; M72.2 Plantar fascial fibromatosis; X58.XXXA Exposure to other specified factors, initial encounter
CPT/HCPCS: 73610; 73721

== ENCOUNTER 2022-05-20 10:54 | Day surgery (SDC) | payer MEDICARE, OTHER, SELFPAY ==
[2020-05-29 09:27] VITALS: BMI 27.2
[2022-05-20 11:29] VITALS: BP 136/87; PULSE 89; RESP 16; TEMP 37.3; O2SAT 100; BMI 26.4
[2022-05-20] MEDS: LACTATED RINGERS 1,000 ML 42 ML IV ×2 (11:51→13:31)
--- NOTE | 2022-05-20 12:18 | PM.PREOP ---
Pre-operative Note Interval Note History & Physical reviewed/Exam performed by Physician: Yes Changes to H&P: No
[2022-05-20] MEDS: CEFAZOLIN 2 GM/100 ML PREMIX 100 ML IV (12:48)
--- NOTE | 2022-05-20 13:19 | SUR.OPER ---
Prone on rojelio frame, head in foam head support,rojelio frame chest rolls, gel pad under knees, pillow under lower legs, toes free of pressure, arms secured on padded arm boards at <90 degrees abduction. Safety belt at thigh., left leg secured to or table right leg draped free
[2022-05-20] MEDS: BUPIVACAINE 0.25% (PF) 30 ML, EPINEPHrine 0.15 MG INJ (13:32)
[2022-05-20 14:21] VITALS: BP 140/78; PULSE 98; RESP 16; TEMP 36.3; O2SAT 100
[2022-05-20 14:26] VITALS: BP 147/98; PULSE 115; RESP 16; O2SAT 98
[2022-05-20 14:31] VITALS: BP 138/83; PULSE 96; RESP 16; O2SAT 97
[2022-05-20 14:36] VITALS: BP 144/84; PULSE 91; RESP 10; O2SAT 99
--- NOTE | 2022-05-20 14:39 | P.OP_ITS ---
Operative Date/Time/Diagnoses Date of procedure: 05/20/22 Time of procedure: 14:39 Pre-op diagnosis: Right Achilles tendon rupture Post-op diagnosis: same Procedure & Clinicians Procedure: Repair Achilles tendon rupture right CPT code 01975 Same procedure as scheduled: Yes Indications: Patient is a 67-year-old male who sustained an Achilles tendon for approximately 4 [place] ago [place]. He is a full-thickness rupture estimated 4 cm on MRI. Then established gap. We discussed options for surgical and nonsurgical treatment he is indicated for operative fixation to restore length power and help reduce rerupture rate. He is otherwise very active. Does not have any hard contraindications to surgical repair. The risks benefits and alternatives procedure were explained to the patient detail including but not limited to infection weakness re-rupture, persistent pain, wound healing problems, amputation, nerve pain, DVT, pulmonary embolism, stroke, paralysis, . The patient has elected to proceed with surgery. Consent was signed. Surgeon: Shelley Mandel Click Yes if Unassisted: Yes Anesthesia Type: General, Peripheral nerve block and Local Operative Notes Findings: Full-thickness Achilles tendon rupture midsubstance Closure Type: primary Specimen(s): none sent Prosthetic devices, grafts, tissues, transplants, or devices: Arthrex pars technique, suture tapes fixation Estimated Blood Loss (mL): 2 Blood products transfused: none Tourniquet time (min): 30 Procedure in detail: Patient was seen in the preoperative area the site of surgery marked informed consent confirmed. The patient was then seen by the anesthesia team and a regional block was placed for postoperative pain control. Patient was positioned supine in the operative room and general anesthetic was administered. The patient was then positioned prone on the operative table. All bony prominences well padded. Well-padded thigh tourniquet was placed. The right lower extremity was prepped and draped in standard sterile fashion. A formal time-out procedure was performed confirming the patient's side and site of surgery administration of appropriate preoperative antibiotics. The presence of informed consent. Attention was turned to the posterior right leg. Esmarch tourniquet was used for exsanguination the tourniquet raised the thigh to 250 mmHg. A small midline incision just medial to the Achilles was drawn out this was taken down through the skin and subcutaneous tissue. The paratenon was then opened over the Achilles tendon midline to the decision to keep these out of direct alignment with each other. Minimal flaps were raised. The midsubstance Achilles tendon rupture was exposed. Total incision was less than 3 cm. Hematoma at the rupture site was debrided. Compartment fasciotomy was done to remove tension and allow blood supply to the cyst Achilles tendon healing. Proximal tendon was mobilized using a malleable deep and superficial to the Achilles tendon freed up then an Allis clamp was used to test the excursion of the tendon. Two tendon ends were able to be brought together with terminal plantar flexion. Once I was happy with the mobilization of the tendon ends the pars jig from the [employer] system for the minimally invasive Achilles tendon repair was inserted inside the paratenon and split proximally along the Achilles tendon stump. The needles were then passed to pass the sutures 1 through 5 and these were then pulled through the wound. They were again in order with a 2. Suture passed around the passing sutures twice and through the loop on each side of the tendon and were pulled through creating the locking stitch. There was a 1. Nonlocking stitch of 2. Locking stitch and 3. Nonlocked stitch. The same procedure was performed on the distal stump. Creating 2 nonlocking and 1 locking stitch on each side of the rupture. Sutures were confirmed to be in the tendon. It was plantar flexion the tendon ends approximated well. No further lengthening procedures were indicated. The foot was brought into approximately 30? of plantar flexion. The proximal cuff was mobilized to allow approximation of the ends. These were tied down in 30? of plantar flexion. The repair site was oversewn with 0 Vicryl suture. Powers test was confirmed with the appropriate Achilles repair and active plantar flexion demonstrating continuity. The wound was irrigated. Paratenon was closed with Vicryl and 4-0 Monocryl Vicryl. Subcutaneous was closed with 4- 0 Monocryl and 3-0 nylon in the skin. Local anesthetic was injected. A well- padded plaster splint was placed in plantar flexion. Tourniquet was released prior to closure and hemostasis confirmed. Drapes were then removed. The patient was woken from anesthesia and taken to the recovery room in good condition. There were no immediate complications with this procedure. All counts were correct. Complications: none Post-operative Condition: stable Disposition: PACU Plan for aftercare: Patient will be touchdown for balance or nonweightbearing so the 1st 2 weeks after surgery to protect the repair. We will follow up in 2 weeks with transition back to the boot with heel lifts and progressive weight-bearing. We will start aspirin for DVT prophylaxis on postoperative day 1325 mg enteric- coated twice a day for 6 weeks. He has no personal or family history of blood clots. We will have oxycodone for pain and Zofran for nausea. May alternatively take Tylenol and/or ibuprofen. Instructed to wean pain medications as able.
[2022-05-20 14:41] VITALS: BP 155/96; PULSE 95; RESP 12; TEMP 36.4; O2SAT 98
== END 2022-05-20 15:12 | disposition home or self-care (01) ==
PROVIDERS: PCP Family Medicine; Referring Provider Orthopaedic Surgery Foot and Ankle Surgery; Visit Provider Orthopaedic Surgery Foot and Ankle Surgery
PROC: (CPT 27650; principal; 2022-05-20 12:45)
DX: S86.011A Strain of right Achilles tendon, initial encounter (principal); W18.40XA Slipping, tripping and stumbling without falling, unspecified, initial encounter; I10 Essential (primary) hypertension
CPT/HCPCS: 27650; J0171; J0330; J0690; J2250; J2704; J3010

== ENCOUNTER 2022-06-03 12:34 | Day surgery (SDC) | payer MEDICARE, OTHER, SELFPAY ==
[2020-05-29 09:27] VITALS: BMI 27.2
[2022-06-03 12:51] VITALS: BMI 26.5
--- NOTE | 2022-06-03 12:59 | PM.PREOP ---
Pre-operative Note Interval Note History & Physical reviewed/Exam performed by Physician: Yes Changes to H&P: No
[2022-06-03 13:06] VITALS: BP 136/85; PULSE 84; RESP 16; TEMP 36.6; O2SAT 97
[2022-06-03] MEDS: LACTATED RINGERS 1,000 ML 42 ML IV ×3 (13:18→15:21)
[2022-06-03] MEDS: CEFAZOLIN 2 GM/100 ML PREMIX 100 ML IV (13:45)
--- NOTE | 2022-06-03 13:58 | SUR.PREOP ---
Block. Monitoring initiated and maintained throughout procedure. Oxygen and medications given by anesthesiologist. Patient remained stable throughout procedure, no adverse reactions noted. Block end time [1325].
--- NOTE | 2022-06-03 14:05 | SUR.OPER ---
Prone on padded OR bed, head in foam head support, gel chest rolls, gel pad under knees, pillow under left lower leg, toes free of pressure, arms secured on padded arm boards at <90 degrees abduction. gel pad under bilateral elbows also. Safety belt at lower back. folded blanket under right lower leg and blankets taped down. Right leg in control of the Surgeon.
[2022-06-03] MEDS: BUPIVACAINE 0.25% (PF) 30 ML, EPINEPHrine 0.15 MG INJ (14:10)
[2022-06-03] MEDS: VANCOMYCIN 1,000 MG VIAL 1000 MG TOP (15:13)
[2022-06-03 15:47] VITALS: BP 129/63; PULSE 96; RESP 11; TEMP 36.4; O2SAT 99
[2022-06-03 15:52] VITALS: BP 129/63; PULSE 90; RESP 14; O2SAT 99
[2022-06-03 15:57] VITALS: BP 132/76; PULSE 85; RESP 14; O2SAT 96
--- NOTE | 2022-06-03 15:59 | P.OP_ITS ---
Operative Date/Time/Diagnoses Date of procedure: 06/03/22 Time of procedure: 16:01 Pre-op diagnosis: Achilles tendon rupture right sequelae, re-rupture previously repaired tendon Post-op diagnosis: same Procedure & Clinicians Procedure: 1. Achilles tendon repair right CPT 40422 2. Transfer flexor hallucis longus tendon CPT code 84897, right Procedure was performed with modifier 58 for a more extensive procedure. The patient sustained a re-rupture of his repaired Achilles tendon with a gap requiring debridement and repair utilizing a flexor hallucis longus tendon transfer due to extensive scarring, tendon gap, and poor remaining Achilles quality. And now subacute injury. This required approximately twice the time of a standard acute tendon repair. Same procedure as scheduled: Yes Surgeon: Shelley Mandel Click Yes if Unassisted: Yes Anesthesia Type: General, Peripheral nerve block and Local Operative Notes Findings: Rupture of Achilles tendon repair midsubstance Achilles tendon with proximal sutures pulled all the way through proximal tendon segment resulting in a shredded distal 2-1/2-3 cm of the proximal segment there was extensive scarring to the deep fascia. This was mobilized using a malleable retractor once this was completed and the tendon ends debrided and previous suture removed there was requirement for flexor hallucis longus transfer to establish resting tension blood supply and accommodate for the tissue loss. Closure Type: primary Specimen(s): none sent Prosthetic devices, grafts, tissues, transplants, or devices: Arthrex 7 x 10 mm bio tenodesis screw FiberTape Estimated Blood Loss (mL): 10 Blood products transfused: none Tourniquet time (min): 74 Procedure in detail: Patient was seen in the preoperative area the site of surgery was marked informed consent confirmed. The patient was brought back to the operating room. A nerve block was placed by the anesthesia team for postoperative pain control. Patient had general anesthesia administered and then was positioned in the pr one position on the operative table. All bony prominences well padded. A well- padded thigh tourniquet had been placed on the operative extremity. The right lower extremity was prepped and draped in the standard sterile fashion. A formal time-out procedure was performed confirming the patient's side and site of surgery administration of appropriate preoperative antibiotic. All were in agreement. Attention turned to the right lower extremity there was increased resting dorsiflexion palpable gap at the level of the previous tendon repair. The small 3 cm posterior medial incision had sutures removed and was reopened. At this level once the paratenon was opened the rupture was once again encountered. This was appreciated to be complete pull-through of the proximal sutures through the proximal tendon stump and there was extensive scarring to the deep fascia. The old sutures were removed with the rongeur and FiberWire scissors and knife. The tendon ends were mobilized using a malleable retractor. A deep fasciotomy was made. There was noted to be severe degradation of the proximal tendon stump from the suture pull-through resulting in about a 3 cm gap in terminal plantar flexion with mobilization and traction using Allis clamps this was improved. But due to the poor quality of the remaining tendon was felt necessary to proceed with the flexor hallucis longus transfer to provide bulk, strength and blood supply to the repair. FHL transfer: At this point the deep fasciotomy was extended and the flexor hallucis longus tendon was identified posterior medially this was followed into the groove. This was tested by motion of the great toe and confirmed to be the FHL. This was placed on proximal traction then tenotomy was made obtaining the flexor hallucis longus transfer. The FiberLoop was used to prepare the tendon end at this point the drill tip wire was placed in the calcaneus just anterior to the Achilles tendon this was confirmed on intraoperative fluoroscopy and drilled through this was then reamed over to a 7 which is what the tendon measured. The suture for the FiberLoop on the FHL was then brought through the Beath pin and brought out the plantar foot and the tendon was brought into the bone tunnel this point the tendon was pulled into the bone tunnels the foot was taken into plantar flexion and held in that position while the 7 x 10 bio tenodesis screw was advanced securing the tendon transfer and holding the plantar flexion tension. Once this was completed attention was returned to the Achilles repair. Achilles repair: Due to the scarring and open technique for Achilles repair was undertaken. The FiberTape suture was placed in the proximal and distal tendon ends and the Krackow fashion and then tied under tension and plantar flexion. The repair was oversewn with the FiberTape ends and with additional 0 Vicryl suture. Additionally the 0 Vicryl suture was used to tack the Achilles to the FHL transfer. The leg was brought into knee flexion and the calf was squeezed confirming appropriate plantar flexion with the Powers test indicating integrity of the plantar flexion mechanism. Thorough irrigation was completed and additionally vancomycin powder was added to the wound as this was a more extensive revision procedure. At this point the paratenon was closed. Subcutaneous tissue was closed with 4-0 Monocryl and the skin with 3-0 nylon suture. Additional Dermabond was used throughout the central part of the incision for a watertight seal. At this point additional local anesthetic was infiltrated. Sterile dressing with Xeroform gauze Webril and a plantar flexion splint was placed. Plaster slabs were placed posteriorly and anteriorly. Drapes were removed. Patient was woken from anesthesia turned supine onto the stretcher and taken to the PACU in good condition. There no immediate complications from this procedure. All counts were correct. Complications: none Post-operative Condition: stable Disposition: PACU Plan for aftercare: Nonweightbearing or touchdown for balance only. Elevate. Follow up in 2 weeks for wound check and transition to a boot with heel lifts. Aspirin for DVT prophylaxis.
[2022-06-03 16:01] VITALS: BP 132/80; PULSE 84; RESP 16; TEMP 36.4; O2SAT 99
== END 2022-06-03 16:20 | disposition home or self-care (01) ==
PROVIDERS: PCP Family Medicine; Referring Provider Orthopaedic Surgery Foot and Ankle Surgery; Visit Provider Orthopaedic Surgery Foot and Ankle Surgery
PROC: (CPT 27650; principal; 2022-06-03 14:15)
DX: S86.011A Strain of right Achilles tendon, initial encounter (principal); G89.18 Other acute postprocedural pain; W05.1XXA Fall from non-moving nonmotorized scooter, initial encounter
CPT/HCPCS: 27691; 27650; 64450; J0171; J0690; J1100; J2250; J2405; J2704; J3010

== ENCOUNTER → 2023-05-16 13:31 | Outpatient (CLI) | payer MEDICARE, OTHER, SELFPAY ==
[2020-05-29 09:27] VITALS: BMI 27.2
[2023-05-16 13:53] LABS: Add Manual Diff / Slide Review NO; Basophils Absolute Auto 0 /uL (0-100); Basophils Percent Auto 0.9 % (0-2); Eosinophils Absolute Auto 300 /uL (0-450); Hematocrit 47.2 % (41-53); Hemoglobin 15.6 g/dL (13.5-17.5); Lymphocytes Absolute Auto 1400 /uL (1100-4500); Lymphocytes Percent Auto 25.7 % (25-40); Mean Corpuscular HGB Conc 33.1 % (30-36); Mean Corpuscular Hemoglobin 29.4 PG (26-34); Mean Corpuscular Volume 89.1 fL (80-100); Monocytes Absolute Auto 500 /uL (0-900); Monocytes Percent Auto 9.6 % (3-14); Neutrophils Absolute Auto 3100 /uL (1500-7000); Neutrophils Percent Auto 58.8 % (50-75); Platelet Count 227 X10^3/uL (150-400); White Blood Cell Count 5.3 X10^3/uL (4.5-11.0)
[2023-05-16 15:28] LABS: Creatinine Urine Random 55.4 mg/dL
[2023-05-16 15:33] LABS: Microalbumin Urine Random < 0.6 mg/dL (0-1.6)
[2023-05-16 16:41] LABS: HEMOLYSIS < 15 (0-50)
[2023-05-16 16:52] LABS: Alanine Aminotransferase 27 IU/L (<50); Albumin 4.2 g/dL (3.5-5.0); Albumin Globulin Ratio 1.4 (1.0-2.8); Alkaline Phosphatase 83 U/L (38-126); Aspartate Aminotransferase 36 IU/L (17-59); Bilirubin Total 1.8 mg/dL (0.2-1.3); Blood Urea Nitrogen 16 mg/dL (9-20); Calcium 9.6 mg/dL (8.4-10.2); Carbon Dioxide 26 mmol/L (22-32); Chloride 103 mmol/L (98-107); Cholesterol 200 mg/dL (140-199); Estimated Glomerular Filt Rate > 60 mL/min (>60); Globulin 3.1 g/dL (1.7-4.1); Glucose 94 mg/dL (80-110); HDL Cholesterol 53 mg/dL (40-60); LDL Cholesterol Calculated 105 mg/dL (<100); Potassium 4.1 mmol/L (3.4-5.1); Sodium 137 mmol/L (137-145); Total Protein 7.3 g/dL (6.3-8.2); Triglycerides 209 mg/dL (35-150)
[2023-05-16 18:11] LABS: TSH w/ Reflex to FT4 3.82 uIU/mL (0.47-4.68)
[2023-05-16 18:37] LABS: Hep C Virus Ab w/Reflex Quant NEGATIVE s/c (NEGATIVE)
[2023-05-18 08:11] LABS: Apolipoprotein B 102 mg/dL (<90)
[2023-05-18 11:27] LABS: Prostate Specific Antigen Scrn 2.59 ng/mL (0.1-4.0)
== END ==
LOC: LAB 13:32
PROVIDERS: PCP Family Medicine; Referring Provider Family Medicine; Visit Provider Family Medicine
DX: E80.4 Gilbert syndrome (principal); I10 Essential (primary) hypertension; Z12.5 Encounter for screening for malignant neoplasm of prostate; E03.9 Hypothyroidism, unspecified; Z00.00 Encounter for general adult medical examination without abnormal findings; I44.7 Left bundle-branch block, unspecified
CPT/HCPCS: 36415; 80053; 80061; 82043; 82172; 82570; 84443; 85025; 86803; G0103

== ENCOUNTER 2023-08-24 13:23 | Day surgery (SDC) | payer MEDICARE, OTHER, SELFPAY ==
[2020-05-29 09:27] VITALS: BMI 27.2
[2023-08-24 13:38] VITALS: BP 158/88; PULSE 70; RESP 16; TEMP 36.3; O2SAT 99
[2023-08-24] MEDS: LACTATED RINGERS 1,000 ML 100 ML IV (13:46)
--- NOTE | 2023-08-24 14:04 | P.HP_ITS ---
History of Present Illness History of Present Illness Date Patient Seen: 08/24/23 Time Patient Seen: 14:04 Chief complaint: SDC Narrative: Danilo is a 68-year-old man here for colonoscopy. His last 1 was 5 years ago and a small adenomatous polyp was removed. He has always had polyps on prior colonoscopies. [facility] Medical History (Updated 08/24/23 @ 14:05 by Rajeev Arellano MD) Gilbert disease Colon polyps Surgical History Anesthesia Surgical procedure planned Family History Father Parkinson's disease Mother Stomach cancer Social History household members: spouse Smoking Status: Former smoker alcohol intake: current Meds Home Medications and Allergies Home Medications Medication Instructions Recorded Confirmed Type levothyroxine 175 mcg tablet 175 mcg PO QDAY #90 tabs 06/13/23 08/24/23 Rx (Synthroid) lisinopril 40 mg tablet 40 mg PO DAILY #90 tabs 06/13/23 08/24/23 Rx Allergies Allergy/AdvReac Type Severity Reaction Status Date / Time No Known Drug Allergies Allergy Verified 08/24/23 13:34 Exam Vital Signs (past 8 hours): - 08/24/23 13:38 Temperature 97.4 F L Pulse Rate 70 Respiratory Rate 16 Blood Pressure 158/88 H Pulse Oximetry 99 Oxygen Delivery Method Room Air Oxygen Delivery Method Room Air Const General: healthy appearing Resp Effort & Inspection: normal respiratory effort Assessment & Plan Assessment and plan (1) History of colon polyps: Status: Acute Plan We reviewed the risks and benefits of colonoscopy for a history of polyps and he would like to proceed. Time-Based Coding :: [TOTAL MINUTES] spent with patient and on the chart (including review of chart, obtaining history, exam, reviewing outside data, placing orders, documenting exam and treatment plan, and counseling patient) on [DATE].
[2023-08-24 15:06] VITALS: BP 109/69; PULSE 63; RESP 15; TEMP 36.2; O2SAT 97
--- NOTE | 2023-08-24 15:06 | PM.OP.COLON ---
Operative Date/Time/Diagnoses Date of procedure: 08/24/23 Time of procedure: 15:06 Pre-op diagnosis: History of polyps Post-op diagnosis: same Procedure & Clinicians Study performed: Colonoscopy Same procedure as scheduled: Yes Surgeon: Rajeev Arellano Procedure Notes Procedure in detail: Surgeon: Rajeev Arellano MD Anesthesia: Halie Dent CRNA Procedure: The patient was brought to the endoscopy suite, placed in left lateral decubitus position. The patient was connected to monitoring devices. A time-out was performed. Sedation was administered. Once the patient was adequately sedated, a digital rectal exam was performed and was normal. The scope was then inserted and advanced to the cecum where the appendiceal orifice was identified and photographed. The scope was then slowly withdrawn over greater than 6 minutes. The mucosa was thoroughly inspected. No polyps or other abnormalities were identified. The scope was retroflexed in the rectum. No other lesions were found. The scope was straightened and removed. The patient was awakened and brought to recovery. Scope withdrawal time: 9 minutes Sedation time: 13 minutes EBL: 0 Findings: Normal colon Post-procedure Recommendations: Colonoscopy in 10 years Disposition: PACU
[2023-08-24 15:11] VITALS: BP 120/73; PULSE 58; RESP 14; O2SAT 98
[2023-08-24 15:15] VITALS: BP 135/85; PULSE 69; RESP 13; O2SAT 98
[2023-08-24 15:24] VITALS: BP 148/94; PULSE 70; RESP 12; O2SAT 99
[2023-08-24 15:26] VITALS: BP 158/107; PULSE 74; RESP 20; O2SAT 99
== END 2023-08-24 15:40 | disposition home or self-care (01) ==
PROVIDERS: PCP Family Medicine; Referring Provider Surgery; Visit Provider Surgery
PROC: 0DJD8ZZ Inspection of Lower Intestinal Tract, Via Natural or Artificial Opening Endoscopic (ICD-10-PCS; CPT 45378; principal; 2023-08-24 14:15)
DX: Z12.11 Encounter for screening for malignant neoplasm of colon (principal); Z86.010 Personal history of colon polyps
CPT/HCPCS: G0105; J2704

== ENCOUNTER → 2024-04-24 09:54 | Outpatient (CLI) | payer MEDICARE, OTHER, SELFPAY ==
[2020-05-29 09:27] VITALS: BMI 27.2
[2024-04-24 10:18] LABS: Add Manual Diff / Slide Review NO; Basophils Absolute Auto 0 /uL (0-100); Basophils Percent Auto 0.9 % (0-2); Eosinophils Absolute Auto 100 /uL (0-450); Eosinophils Percent Auto 1.5 % (2-4); Hematocrit 44.2 % (41-53); Hemoglobin 14.6 g/dL (13.5-17.5); Lymphocytes Absolute Auto 1700 /uL (1100-4500); Lymphocytes Percent Auto 32.7 % (25-40); Mean Corpuscular HGB Conc 33.1 % (30-36); Mean Corpuscular Hemoglobin 28.8 PG (26-34); Mean Corpuscular Volume 87.1 fL (80-100); Monocytes Absolute Auto 600 /uL (0-900); Monocytes Percent Auto 10.6 % (3-14); Neutrophils Absolute Auto 2800 /uL (1500-7000); Neutrophils Percent Auto 54.3 % (50-75); Platelet Count 471 X10^3/uL (150-400); Red Blood Cell Count 5.08 X10^6/uL (4.5-5.9); Red Cell Distribution Width 14.1 % (11.6-14.8); White Blood Cell Count 5.2 X10^3/uL (4.5-11.0)
[2024-04-24 10:35] LABS: Alanine Aminotransferase 48 IU/L (<50); Albumin 4.3 g/dL (3.5-5.0); Albumin Globulin Ratio 1.3 (1.0-2.8); Alkaline Phosphatase 81 U/L (38-126); Aspartate Aminotransferase 47 IU/L (17-59); BUN Creatinine Ratio 19.4 (6-22); Bilirubin Total 0.9 mg/dL (0.2-1.3); Blood Urea Nitrogen 20 mg/dL (9-20); Calcium 10.1 mg/dL (8.4-10.2); Carbon Dioxide 24 mmol/L (22-32); Chloride 103 mmol/L (98-107); Estimated Glomerular Filt Rate > 60 mL/min (>60); Globulin 3.2 g/dL (1.7-4.1); Glucose 108 mg/dL (80-110); HEMOLYSIS < 15 (0-50); Potassium 4.7 mmol/L (3.4-5.1); Sodium 139 mmol/L (137-145); Total Protein 7.5 g/dL (6.3-8.2)
[2024-04-24 11:05] LABS: TSH w/ Reflex to FT4 0.71 uIU/mL (0.47-4.68)
== END ==
PROVIDERS: PCP Family Medicine; Referring Provider Nurse Practitioner Family; Visit Provider Nurse Practitioner Family
DX: E03.9 Hypothyroidism, unspecified (principal); R19.7 Diarrhea, unspecified; T50.Z95A Adverse effect of other vaccines and biological substances, initial encounter
CPT/HCPCS: 36415; 80053; 84443; 85025

== ENCOUNTER 2024-05-14 08:56 | Emergency (ER) | payer MEDICARE, OTHER, SELFPAY ==
[2020-05-29 09:27] VITALS: BMI 27.2
[2024-05-14 09:03] VITALS: BP 118/75; PULSE 101; RESP 19; TEMP 36.6; O2SAT 99; BMI 26.5
--- NOTE | 2024-05-14 09:36 | DI.US.S_ITS ---
PROCEDURE: US SCROTUM INDICATIONS: testicle pain TECHNIQUE: Real-time scanning was performed of the scrotum and testicles, with image documentation. Color and pulse Doppler interrogation was performed of both testicles. COMPARISON: None. FINDINGS: Right: Testicle is normal in size at 4.7 x 2.8 x 3.2 cm, and homogenous in echotexture. Epididymis is heterogeneous with increased vascularity. Small hydrocele with low level internal echoes. Overlying scrotal skin is thickened. Left: Testicle is normal in size at 4.6 x 2.2 x 2.6 cm, and homogeneous in echotexture. Epididymis is normal in overall size and morphology. No hydrocele or varicoceles. Overlying scrotal skin is normal in thickness. Doppler: Color and pulse Doppler demonstrate normal and symmetric arterial flow in both testicles. IMPRESSION: Heterogeneous appearance of the right epididymis with increased vascularity, suspicious for epididymitis. No signs of orchitis. Approved by: Mannie Dash M.D. on 05/14/2024 at 11:08
--- NOTE | 2024-05-14 11:19 | ED.MALEGU ---
HPI - Male Genitourinary General Chief complaint: Urogenital-Male Stated complaint: Per patient possible groin Hernia Time Seen by Provider: 05/14/24 10:25 Source: patient Mode of arrival: Family Vehicle History of Present Illness HPI Narrative: 69-year-old male recently returned from travel in [facility] where he had loose stools and cough symptoms that seemed to be resolved, now with 4 days duration increasing right groin scrotal pain, no definite traumatic injury recalled, no penile discharge, no history of similar infection or swelling problems in the groin area. No prior scrotal surgeries or testicular surgeries. No gross hematuria symptoms. No painful urination. No flank pain right or left side. No nausea or vomiting during recent days. Related Data Previous Rx's Medication Instructions Recorded levothyroxine 175 mcg tablet 175 mcg PO QDAY #90 tabs 04/12/24 (Synthroid) lisinopril 40 mg tablet 40 mg PO DAILY #90 tabs 04/12/24 cefdinir 300 mg capsule 300 mg PO BID 14 days #28 caps 05/14/24 Allergies Allergy/AdvReac Type Severity Reaction Status Date / Time No Known Drug Allergies Allergy Verified 05/14/24 09:08 Patient History Medical History (Updated 05/14/24 @ 11:58 by Richmond Powers MD) Gilbert disease Colon polyps Surgical History Anesthesia Surgical procedure planned Family History Father Parkinson's disease Mother Stomach cancer Social History household members: spouse Smoking Status: Former smoker alcohol intake: current Smoking Status: Former smoker tobacco type: cigarettes alcohol intake frequency: a few times a week Exam Narrative Exam Narrative: GENERAL: Well-developed patient, in mild distress. HEAD: Atraumatic. Normocephalic. EYES: Pupils equal round and reactive. Extraocular motions intact. No scleral icterus. No injection or drainage. ENT: Nose without bleeding, purulent drainage. Throat without erythema, tonsillar hypertrophy or exudate. Airway patent. NECK: Trachea midline. Non tender CARDIOVASCULAR: Regular rate and rhythm without murmurs, gallops, or rubs. RESPIRATORY: Clear to auscultation. Breath sounds equal bilaterally. No wheezes, rales, or rhonchi. GASTROINTESTINAL: Abdomen soft, non-tender, nondistended. : Normal circumcised male genitalia, some swelling to right scrotum with tenderness, and tenderness along the epididymis on that side, no obvious mass on Valsalva. No tenderness left testis or epididymal region. No folliculitis or skin changes to the scrotum or inguinal or penile shaft. EXTREMITIES: No edema or joint tenderness. BACK: Nontender without deformity or crepitance. No flank tenderness. NEURO: AOx3. Motor functions grossly nonfocal SKIN: No rash or erythema of visible areas Initial Vital Signs Initial Vital Signs: Vital Signs Temperature 97.9 F 05/14/24 09:03 Pulse Rate 101 H 05/14/24 09:03 Respiratory Rate 19 05/14/24 09:03 Blood Pressure 118/75 05/14/24 09:03 Pulse Oximetry 99 05/14/24 09:03 Oxygen Delivery Method Room Air 05/14/24 09:03 Course Orders Ordered: Discontinued Medications Cefdinir (Cefdinir 300 Mg Capsule) 300 mg PO NOW ONE Stop: 05/14/24 11:38 Last Admin: 05/14/24 12:10 Dose: 300 mg Documented By: ASHLY Vital Signs Vital signs: Vital Signs - 8 hr 05/14/24 12:06 05/14/24 12:07 05/14/24 12:07 Pulse Rate 78 Blood Pressure 126/85 Pulse Oximetry 97 100 Oxygen Delivery Method Room Air MDM - Male Genitourinary Imaging Data Ultrasound scrotum: Radiologist's Impression: [address] [address] Ultrasound Report Signed Patient: Danilo Dickerson MR#: [id number] : 1955 Acct:[id number] Age/Sex: 69 / M Date of Service: 05/14/24 Loc: ED Accession Number: [id number] Procedure: US scrotum Ordering Provider: Richmond Powers MD PROCEDURE: US SCROTUM INDICATIONS: testicle pain TECHNIQUE: Real-time scanning was performed of the scrotum and testicles, with image documentation. Color and pulse Doppler interrogation was performed of both testicles. COMPARISON: None. FINDINGS: Right: Testicle is normal in size at 4.7 x 2.8 x 3.2 cm, and homogenous in echotexture. Epididymis is heterogeneous with increased vascularity. Small hydrocele with low level internal echoes. Overlying scrotal skin is thickened. Left: Testicle is normal in size at 4.6 x 2.2 x 2.6 cm, and homogeneous in echotexture. Epididymis is normal in overall size and morphology. No hydrocele or varicoceles. Overlying scrotal skin is normal in thickness. Doppler: Color and pulse Doppler demonstrate normal and symmetric arterial flow in both testicles. IMPRESSION: Heterogeneous appearance of the right epididymis with increased vascularity, suspicious for epididymitis. No signs of orchitis. Approved by: Mannie Dash M.D. on 05/14/2024 at 11:08 [facility] Narrative Medical decision making narrative: 69-year-old male with right scrotal pain without known trauma, recent travel to [facility] with GI and respiratory symptoms unclear that it is at all related. No recent exposure to antibiotics known. Afebrile, sirs screen negative. Some tenderness to the right scrotal contents and along the right epididymis. Ultrasound scrotum suspicious for right-sided epididymitis per verbal report sonogram tech. No torsion. Await Radiology report. Ultrasound suspicious for right-sided epididymitis, no testicular torsion, see radiology report. We discussed oral antibiotic options, patient prefers cephalosporin rather than quinolone. Oral cefdinir 1st dose now, prescription for 14 day course. Follow up with PCP anticipated this next week. Contact information also given for local urologists if he prefers follow up there. Discharge Plan Departure Patient Disposition: Home Clinical Impression: Acute epididymitis Instructions: DI for Epididymitis Activity Restrictions/Additional Instructions: Right-sided scrotal pain. Recent travel to [facility] with gastrointestinal and respiratory symptoms that seemed to be resolved, not necessarily related to current symptoms. Ultrasound showed inflammation of the epididymis, concerning for acute epididymitis. This is not a tropical disease. This is fairly common. Usually antibiotics we will take care of it. First dose of cefdinir antibiotic given in the emergency department, remainder of antibiotic course sent to your pharmacy. Take antibiotics as prescribed. Take [id number] anti-inflammatory medication such as ibuprofen and/or acetaminophen for pain control. Recheck with your regular doctor in the next few days as planned. You could consider also seeing urologist in follow up, his contact clinic information also provided. Prescriptions: New cefdinir 300 mg capsule 300 mg PO BID 14 Days Qty: 28 0RF No Action levothyroxine [Synthroid] 175 mcg tablet 175 mcg PO QDAY Qty: 90 2RF lisinopril 40 mg tablet 40 mg PO DAILY Qty: 90 2RF Referrals: Ajith Shay MD [Primary Care Provider] - Reid Augustin MD [Physician] - Stand Alone Forms: Patient Portal/API/Survey
[2024-05-14 12:06] VITALS: O2SAT 97
[2024-05-14 12:07] VITALS: BP 126/85; PULSE 78; O2SAT 100
[2024-05-14] MEDS: CEFDINIR 300 MG CAPSULE PO (12:10)
== END 2024-05-14 12:13 | disposition home or self-care (01) ==
PROVIDERS: Emergency Provider Emergency Medicine; PCP Family Medicine
DX: N45.1 Epididymitis (principal)
CPT/HCPCS: 76870; 93975; 99283

== ENCOUNTER → 2024-05-21 09:56 | Outpatient (CLI) | payer MEDICARE, OTHER, SELFPAY ==
[2020-05-29 09:27] VITALS: BMI 27.2
[2024-05-21 10:57] LABS: Creatinine Urine Random 45.61 mg/dL
[2024-05-21 11:01] LABS: Microalbumin Urine Random < 0.6 mg/dL (0-1.6)
[2024-05-21 11:30] LABS: Cholesterol 163 mg/dL (140-199); HDL Cholesterol 36 mg/dL (40-60); LDL Cholesterol Calculated 87 mg/dL (<100); Triglycerides 198 mg/dL (35-150)
[2024-05-21 11:59] LABS: Prostate Specific Antigen Scrn 3.23 ng/mL (0.1-4.0)
[2024-05-22 03:36] LABS: Apolipoprotein B 82 mg/dL (<90)
== END ==
PROVIDERS: PCP Family Medicine; Referring Provider Family Medicine; Visit Provider Family Medicine
DX: I10 Essential (primary) hypertension (principal); Z12.5 Encounter for screening for malignant neoplasm of prostate; E80.4 Gilbert syndrome; E03.9 Hypothyroidism, unspecified; I44.7 Left bundle-branch block, unspecified
CPT/HCPCS: 36415; 80061; 82043; 82172; 82570; G0103

== ENCOUNTER → 2024-08-05 07:30 | Outpatient (CLI) | payer MEDICARE, OTHER, SELFPAY ==
[2020-05-29 09:27] VITALS: BMI 27.2
[2024-08-05 09:29] LABS: Prostate Specific Antigen Scrn 2.58 ng/mL (0.1-4.0)
== END ==
PROVIDERS: PCP Family Medicine; Referring Provider Family Medicine; Visit Provider Family Medicine
DX: Z12.5 Encounter for screening for malignant neoplasm of prostate (principal); N32.81 Overactive bladder
CPT/HCPCS: 36415; 51798; 81002; 99213; G0103

== ENCOUNTER → 2025-01-21 15:28 | Outpatient (CLI) | payer MEDICARE, OTHER, SELFPAY ==
[2020-05-29 09:27] VITALS: BMI 27.2
[2025-01-21 17:06] LABS: Add Manual Diff / Slide Review NO; Hematocrit 45.8 % (41-53); Hemoglobin 15.2 g/dL (13.5-17.5); Lymphocytes Absolute Auto 1700 /uL (1100-4500); Mean Corpuscular HGB Conc 33.2 % (30-36); Mean Corpuscular Hemoglobin 27.6 PG (26-34); Mean Corpuscular Volume 83.0 fL (80-100); Platelet Count 247 X10^3/uL (150-400)
[2025-01-21 17:11] LABS: Alanine Aminotransferase 33 IU/L (<50); Albumin 4.6 g/dL (3.5-5.0); Albumin Globulin Ratio 1.3 (1.0-2.8); Alkaline Phosphatase 79 U/L (38-126); Blood Urea Nitrogen 17 mg/dL (9-20); Calcium 9.5 mg/dL (8.4-10.2); Carbon Dioxide 28 mmol/L (22-32); Chloride 102 mmol/L (98-107); Estimated Glomerular Filt Rate > 60 mL/min (>60); Globulin 3.5 g/dL (1.7-4.1); Glucose 95 mg/dL (70-99); HEMOLYSIS 30 (0-50); Potassium 4.1 mmol/L (3.4-5.1); Sodium 139 mmol/L (137-145); Total Protein 8.1 g/dL (6.3-8.2)
[2025-01-21 17:30] LABS: Microalbumi Creatinin Ratio Ur 9.0 ug/mg CR (<30)
[2025-01-21 17:54] LABS: TSH w/ Reflex to FT4 1.01 uIU/mL (0.47-4.68)
== END ==
PROVIDERS: PCP Family Medicine; Referring Provider Family Medicine; Visit Provider Family Medicine
DX: E03.9 Hypothyroidism, unspecified (principal); I10 Essential (primary) hypertension; N40.1 Benign prostatic hyperplasia with lower urinary tract symptoms; N13.8 Other obstructive and reflux uropathy; R42 Dizziness and giddiness
CPT/HCPCS: 36415; 80053; 82043; 82570; 84443; 85025